=== PATIENT | female | born 1965 | race African-American/Black ===

== ENCOUNTER 2020-01-10 18:33 | Outpatient (REF) | payer MEDICARE, MEDICAID, SELFPAY | END 2020-01-10 18:34 | disposition home or self-care (01) | LOC: HO.LNP 18:33 | PROVIDERS: Visit Provider Hospitalist | DX: Z20.828 Contact with and (suspected) exposure to other viral communicable diseases (principal) | CPT/HCPCS: U0003 ==

== ENCOUNTER 2020-06-23 13:51 | Outpatient (REF) | payer MEDICARE, SELFPAY ==
[2020-06-23 16:26] LABS: MANUAL DIFF FLAG NO
[2020-06-23 16:30] LABS: Basophils Absolute Auto 0.1 X10*3/uL (0.0-0.2); Basophils Percent Auto 1.2 % (0-2); Eosinophils Absolute Auto 0.1 X10*3/uL (0.0-0.4); Eosinophils Percent Auto 1.5 % (0-4); Hematocrit 41.9 % (37-47); Hemoglobin 13.1 g/dl (12.0-16.0); Imm Gran Abs Auto 0.03 X10*3/uL (0.00-0.03); Imm Gran Pct Auto 0.4 % (0.0-0.4); Lymphocytes Absolute Auto 3.8 X10*3/uL (1.2-4.9); Lymphocytes Percent Auto 48.6 % (20-40); Mean Corpuscular HGB Conc 31.3 g/dl (31.0-35.0); Mean Corpuscular Hemoglobin 25.7 pg (27.0-33.0); Mean Corpuscular Volume 82.2 fL (80-98); Mean Platelet Volume 11.3 fL (9.4-12.3); Monocytes Absolute Auto 0.4 X10*3/uL (0.1-1.2); Monocytes Percent Auto 5.5 % (2-11); Neutrophils Absolute Auto 3.4 X10*3/uL (2.0-8.3); Neutrophils Percent Auto 42.8 % (45-73); Platelet Count 275 X10*3/uL (160-400); Red Cell Distribution Width 15.7 % (11.0-16.0); White Blood Count 7.8 X10*3/uL (4.8-10.8)
[2020-06-23 16:55] LABS: Alanine Aminotransferase 19 U/L (0-31); Albumin Level 4.3 g/dL (3.5-5.0); Alkaline Phosphatase 81 U/L (39-117); Anion Gap 11 (12-20); Aspartate Amino Transferase 17 U/L (5-31); Bilirubin Total 0.6 mg/dL (0.0-1.0); Blood Urea Nitrogen 13 mg/dL (9-16); Calcium 9.9 mg/dL (8.4-10.2); Carbon Dioxide 31 mmol/L (22-29); Chloride 105 mmol/L (96-108); Estimated Glomerular Filt Rate > 60; Glucose Random 84 mg/dL (60-115); Potassium 3.8 mmol/L (3.3-5.1); Sodium 143 mmol/L (135-145); Total Protein 7.3 g/dL (6.5-8.0)
[2020-06-23 17:16] LABS: TSH reflex Free T4 0.79 uIU/mL (0.32-4.0)
[2020-06-24 06:01] LABS: LDL Cholesterol Direct 100 mg/dL (<100)
== END 2020-06-23 13:52 | disposition home or self-care (01) ==
LOC: HO.HMGCLDS 13:51
PROVIDERS: PCP Internal Medicine; Visit Provider Internal Medicine
DX: I16.0 Hypertensive urgency (principal); J45.909 Unspecified asthma, uncomplicated
CPT/HCPCS: 36415; 80053; 83721; 84443; 85025

== ENCOUNTER 2021-09-22 10:50 | Outpatient (REF) | payer MEDICARE, MEDICAID, SELFPAY ==
[2021-09-22 13:41] LABS: MANUAL DIFF FLAG NO
[2021-09-22 13:45] LABS: Basophils Absolute Auto 0.1 X10*3/uL (0.0-0.2); Basophils Percent Auto 1.3 % (0-2); Eosinophils Absolute Auto 0.1 X10*3/uL (0.0-0.4); Eosinophils Percent Auto 1.3 % (0-4); Hematocrit 44.1 % (37.0-47.0); Hemoglobin 14.3 g/dl (12.0-16.0); Imm Gran Abs Auto 0.01 X10*3/uL (0.00-0.03); Imm Gran Pct Auto 0.2 % (0.0-0.4); Lymphocytes Absolute Auto 2.6 X10*3/uL (1.2-4.9); Lymphocytes Percent Auto 41.4 % (20-40); Mean Corpuscular HGB Conc 32.4 g/dl (31.0-35.0); Mean Corpuscular Hemoglobin 27.1 pg (27.0-33.0); Mean Corpuscular Volume 83.7 fL (80.0-98.0); Mean Platelet Volume 11.8 fL (9.4-12.3); Monocytes Absolute Auto 0.4 X10*3/uL (0.1-1.2); Monocytes Percent Auto 6.5 % (2-11); Neutrophils Absolute Auto 3.1 x10*3/uL (2.0-8.3); Neutrophils Percent Auto 49.3 % (45-73); Platelet Count 257 X10*3/uL (160-400); Red Blood Count 5.27 X10*6/uL (4.20-5.50); Red Cell Distribution Width 14.1 % (11.0-16.0); White Blood Count 6.3 X10*3/uL (4.8-10.8)
[2021-09-22 14:06] LABS: Alanine Aminotransferase 21 U/L (0-31); Albumin Level 4.4 g/dL (3.5-5.0); Alkaline Phosphatase 97 U/L (39-117); Anion Gap 10 (12-20); Aspartate Amino Transferase 22 U/L (5-31); Bilirubin Total 0.6 mg/dL (0.0-1.0); Blood Urea Nitrogen 17 mg/dL (9-16); Calcium 9.5 mg/dL (8.4-10.2); Carbon Dioxide 27 mmol/L (22-29); Chloride 109 mmol/L (96-108); Cholesterol 204 mg/dL; Estimated Glomerular Filt Rate 51; Glucose Fasting 103 mg/dL (60-99); HDL Cholesterol 39 mg/dL; LDL Cholesterol Calculated 135 mg/dl; Potassium 3.9 mmol/L (3.3-5.1); Sodium 142 mmol/L (135-145); Total Protein 7.2 g/dL (6.5-8.0); Triglycerides 150 mg/dL
[2021-09-22 14:28] LABS: TSH reflex Free T4 0.93 uIU/mL (0.32-4.0)
== END 2021-09-22 10:51 | disposition home or self-care (01) ==
LOC: HO.HMGCLDS 10:50
PROVIDERS: Visit Provider Internal Medicine
DX: Z00.01 Encounter for general adult medical examination with abnormal findings (principal); I10 Essential (primary) hypertension; J43.9 Emphysema, unspecified; J45.40 Moderate persistent asthma, uncomplicated; E66.09 Other obesity due to excess calories; F32.2 Major depressive disorder, single episode, severe without psychotic features; F43.10 Post-traumatic stress disorder, unspecified
CPT/HCPCS: 36415; 80053; 80061; 84443; 85025

== ENCOUNTER 2021-12-02 10:37 | Outpatient (REF) | payer MEDICARE, MEDICAID, SELFPAY ==
[2021-12-02 18:14] LABS: CT PCR NOT DETECTED (Not Detect.); NG PCR NOT DETECTED (Not Detect.)
[2021-12-07 10:52] LABS: HPV 16 RNA NOT DETECTED (NOT DETECTED); HPV mRNA E6/E7 rflx Detected (Not Detected)
== END 2021-12-02 10:38 | disposition home or self-care (01) ==
LOC: HO.LNP 10:37
PROVIDERS: Visit Provider Advanced Practice Midwife
DX: Z01.419 Encounter for gynecological examination (general) (routine) without abnormal findings (principal); Z11.3 Encounter for screening for infections with a predominantly sexual mode of transmission; Z11.8 Encounter for screening for other infectious and parasitic diseases; Z11.51 Encounter for screening for human papillomavirus (HPV)
CPT/HCPCS: 87491; 87591; 87624; 87625; 88142

== ENCOUNTER 2021-12-23 10:50 | Outpatient (REF) | payer MEDICARE, MEDICAID, SELFPAY ==
--- NOTE | ~2021-12-23 | MM_ITS ---
EXAMINATION: MM SCREENING DIGITAL BREAST TOMOSYNTHESIS, BILATERAL CLINICAL INFORMATION: Screening. Asymptomatic. No known family history breast cancer. The lifetime risk of breast cancer based on the Tyrer-Cuzick Model is 7%. COMPARISON: None. TECHNIQUE: Digital breast tomosynthesis is performed in both the craniocaudal and mediolateral oblique views along with computer-aided detection (CAD). Synthesized 2D images are generated from the tomosynthesis. Additional right MLO view is provided. FINDINGS: There are scattered areas of fibroglandular density (ACR BI-RADS breast composition Category b). There are no significant masses, abnormal calcifications, or other abnormalities. No architectural abnormality. The axilla and skin contours are unremarkable. MM/MM tomosynthesis screening BI IMPRESSION: No mammographic evidence of malignancy. ASSESSMENT: BI-RADS 1: Negative RECOMMENDATION: Routine annual mammography screening. This patient's information was entered into a reminder system with a target due date for their next mammogram.
== END 2021-12-23 10:51 | disposition home or self-care (01) ==
LOC: HO.MAMMO 10:50
PROVIDERS: PCP Internal Medicine; Visit Provider Advanced Practice Midwife
DX: Z12.31 Encounter for screening mammogram for malignant neoplasm of breast (principal)
CPT/HCPCS: 77063; 77067

== ENCOUNTER 2022-04-05 09:48 | Outpatient (REF) | payer MEDICARE, MEDICAID, SELFPAY ==
[2022-04-05 11:46] LABS: MANUAL DIFF FLAG NO
[2022-04-05 12:00] LABS: Basophils Absolute Auto 0.1 X10*3/uL (0.0-0.2); Basophils Percent Auto 1.2 % (0-2); Eosinophils Absolute Auto 0.1 X10*3/uL (0.0-0.4); Eosinophils Percent Auto 1.8 % (0-4); Hematocrit 44.1 % (37.0-47.0); Hemoglobin 14.7 g/dl (12.0-16.0); Imm Gran Abs Auto 0.02 X10*3/uL (0.00-0.03); Imm Gran Pct Auto 0.3 % (0.0-0.4); Lymphocytes Absolute Auto 3.5 X10*3/uL (1.2-4.9); Lymphocytes Percent Auto 52.2 % (20-40); Mean Corpuscular HGB Conc 33.3 g/dl (31.0-35.0); Mean Corpuscular Hemoglobin 28.2 pg (27.0-33.0); Mean Corpuscular Volume 84.6 fL (80.0-98.0); Mean Platelet Volume 12.2 fL (9.4-12.3); Monocytes Absolute Auto 0.5 X10*3/uL (0.1-1.2); Monocytes Percent Auto 7.2 % (2-11); Neutrophils Absolute Auto 2.5 x10*3/uL (2.0-8.3); Neutrophils Percent Auto 37.3 % (45-73); Platelet Count 218 X10*3/uL (160-400); Red Blood Count 5.21 X10*6/uL (4.20-5.50); Red Cell Distribution Width 13.3 % (11.0-16.0); White Blood Count 6.7 X10*3/uL (4.8-10.8)
[2022-04-05 12:29] LABS: Alanine Aminotransferase 19 U/L (0-31); Alkaline Phosphatase 70 U/L (39-117); Anion Gap 14 (12-20); Aspartate Amino Transferase 19 U/L (5-31); Bilirubin Total 0.8 mg/dL (0.0-1.0); Blood Urea Nitrogen 16 mg/dL (9-16); Calcium 10.2 mg/dL (8.4-10.2); Carbon Dioxide 29 mmol/L (22-29); Chloride 106 mmol/L (96-108); Estimated Glomerular Filt Rate 52; Glucose Random 99 mg/dL (60-115); Potassium 3.5 mmol/L (3.3-5.1); Sodium 145 mmol/L (135-145); Total Protein 6.6 g/dL (6.5-8.0)
[2022-04-05 12:34] LABS: Estimated Average Glucose 103 mg/dL; Hemoglobin A1c % 5.2 %
== END 2022-04-05 09:49 | disposition home or self-care (01) ==
LOC: HO.HMGCLDS 09:48
PROVIDERS: PCP Internal Medicine; Visit Provider Internal Medicine
DX: I10 Essential (primary) hypertension (principal); E66.09 Other obesity due to excess calories; F32.2 Major depressive disorder, single episode, severe without psychotic features; F43.10 Post-traumatic stress disorder, unspecified; J43.9 Emphysema, unspecified; J45.40 Moderate persistent asthma, uncomplicated
CPT/HCPCS: 36415; 80053; 83036; 84443; 85025

== ENCOUNTER 2022-09-28 10:17 | Outpatient (AMB) | payer MEDICARE, MEDICAID, SELFPAY ==
[2022-09-28 10:19] VITALS: BP 136/90; PULSE 95; O2SAT 98; BMI 40.2
--- NOTE | 2022-09-28 10:19 | MHC.PC.OV ---
Vital Signs 09/28/22 10:19 Height 5 ft 4 in Weight 234 lb 6 oz BMI 40.2 BP 136/90 H Blood Pressure Location Rt brachial Position Sitting Pulse 95 Pulse Source Pulse Oximeter Pulse Oximetry (%) 98 Oxygen Delivery Method Room Air Intake Visit Reasons: 3m follow up Allergies No Known Allergies Allergy (Verified 09/28/22 10:19) Medication List - Last Reconciled 09/28/22 by Gilmar Yeager MD Anoro Ellipta 62.5-25 mcg/actuation (umeclidinium-vilanterol) 1 inh inhalation DAILY 60 days NS buspirone 10 mg PO .q am 90 days hydrochlorothiazide 25 mg PO ONCE 90 days lisinopril 40 mg PO DAILY 90 days quetiapine 100 mg (2 x 50 mg) PO BEDTIME 90 days Tobacco use date assessed: 09/28/22 Dental Screening Dental Screen Date: 09/28/22 Did you have a dental visit in the last 12 months?: No Did you have a dental problem in the last 6 months where you did not have access to dental care?: No Was dental information given to patient?: No HPI 3m follow up HPI Details Patient is a 57-year-old female came in today for follow-up appointment. She forgot to do the labs she will have them done today Hypertension: She is on hydrochlorothiazide 25 mg and lisinopril 40 mg. Blood pressure is stable Depression major/PTSD: Patient is on Seroquel 100 at night which is helping with the sleep however continued to feel depressed Patient says that she has walking as in her mind and sometimes cannot concentrate. I am adding Wellbutrin 150 mg that she is to start in the morning Buspirone did not help her with anxiety I have stopped that Continue to smoke once again instructed patient to stop smoking as soon as possible. Asthma: She is using maintenance inhaler now and is doing well. BMI is 40 having difficulty losing weight Follow-up 3 months [facility] Medical History BMI 38.0-38.9,adult Family History Mother Ovarian cancer Social History Housing: Other Alcohol intake: never Patient Tobacco Use Status: Current everyday Tobacco user Cigarettes Per Day: 5 e-Cigarette/Vaping Use: Never Used service: No Current occupational status: unemployed Sexual orientation: Straight/Heterosexual Gender identity: Female Cognitive needs: No Hearing needs: No Vision needs: No Questionnaire PHQ-9 Over the last 2 weeks, how often have you been bothered by any of the following problems? 1. Little interest or pleasure in doing things: several days 2. Feeling down, depressed, or hopeless: nearly every day 3. Trouble falling or staying asleep, or sleeping too much: more than half the days 4. Feeling tired or having little energy: several days 5. Poor appetite or overeating: several days 6. Feeling bad about yourself - or that you are a failure or have let yourself or your family down: more than half the days 7. Trouble concentrating on things, such as reading the newspaper or watching television: nearly every day 8. Moving or speaking so slowly that other people could have noticed. Or the opposite - being so fidgety or restless that you have been moving around a lot more than usual: several days 9. Thoughts that you would be better off or of hurting yourself in some way: more than half the days Total score: 16 Depression Screening Interpretation: Positive 89784 - PHQ-9 Billing: Yes Source: Developed by Drs. Joe Fernandes, Malathi Lindsey, [employer] and colleagues, with an educational edmundo from [employer]. Thrive Questionnaire Date Thrive assessed: 09/28/22 I am a: Patient What is your living situation today?: I have a steady place to live Within the past 12 months, did the food you bought not last and you didn't have the money to get more?: Never true Within the past 12 months, did you worry whether your food would run out before you got money to buy more?: Never true Do you have trouble paying for medicines?: No Do you have trouble getting transportation to medical appointments?: No Do you have trouble paying your heating and electricity bill?: No Do you have trouble taking care of your child, family member or friend?: No Do you have trouble with day-to-day activities such as bathing, preparing meals, shopping, managing finances, etc.?: Yes Are you currently unemployed and looking for a job?: No Are you interested in more education?: No AUDIT C Alcohol Use Questionnaire (AUDIT-C) 1. How often do you have a drink containing alcohol?: Never 3. How often do you have six or more drinks on one occasion?: Never Total Score: 0 Score Reviewed/Action Taken: Yes PREET-7 AMB Questionnaire PREET-7 Date PREET - 7 assessed: 09/28/22 Feeling nervous, anxious, or on edge: 1 = Several days Not being able to stop or control worryin = More than half the days Worrying too much about different things: 2 = More than half the days Trouble relaxin = More than half the days Being so restless that it is hard to sit still: 1 = Several days Becoming easily annoyed or irritable: 2 = More than half the days Feeling afraid as if something awful might happen: 2 = More than half the days Total PREET-7 score (0-4 normal; 5-9 mild; 10-14 moderate; 15-21 severe): 12 Source: Developed by Drs. Joe Fernandes, Malathi Lindsey, [employer] and colleagues, with an educational edmundo from [employer]. PREET-7 Assessment Billing PREET-7 Assessment Tool: PREET-7 Assessment 93864 Review of Systems Const Denies chills and Denies fever(s) ENT Denies epistaxis and Denies nasal discharge Card Denies chest pain Resp Denies chest congestion, Denies cough and Denies hemoptysis GI Denies diarrhea and Denies nausea Skin/Breast Denies rash Neuro Reports no additional complaints Psych Reports no additional complaints Endo Reports no additional complaints Physical exam (Primary Care) Vital Signs: Last Vital Signs Pulse 95 09/28/22 10:19 BP 136/90 H 09/28/22 10:19 Pulse Ox 98 09/28/22 10:19 Oxygen Delivery Method Room Air 09/28/22 10:19 BMI result Body Mass Index 40.2 Tobacco/Smoking Status: Tobacco use Status Tobacco use date assessed 09/28/22 09/28/22 10:21 Patient Tobacco Use Status Current everyday Tobacco 09/28/22 10:21 e-Cigarette/Vaping Use Never Used 09/28/22 10:21 PHQ-9: PHQ-9 Score PHQ-9: Total score 16 09/28/22 10:46 Depression Screening Interpretation: Positive Thrive Assessment: Date of Thrive Assessment Date Thrive assessed 09/28/22 09/28/22 10:46 Const General: cooperative, comfortable and no acute distress Orientation/consciousness: patient oriented x3 HENMT Head: Yes normocephalic Eyes General: appearance normal, both eyes and all related structures Neck Neck: Yes supple Resp Effort & Inspection: normal respiratory effort, no cough and no stridor Cardio Rhythm: regular rhythm Heart sounds: S1 normal heart sound present and S2 normal heart sound present Skin General skin exam: turgor normal Neuro General: patient oriented x3, tone normal and moves all extremities Extrem Right lower extremity: no edema Left lower extremity: no edema Assessment and Plan Assessment & Plan (1) Asthma, moderate: Code(s): J45.909 - Unspecified asthma, uncomplicated Qualifiers: Asthma complication type: uncomplicated Asthma persistence: persistent Qualified Code(s): J45.40 - Moderate persistent asthma, uncomplicated (2) PTSD (post-traumatic stress disorder): Code(s): F43.10 - Post-traumatic stress disorder, unspecified (3) Major depress dis, severe: Code(s): F32.2 - Major depressive disorder, single episode, severe without psychotic features (4) Obesity due to excess calories: Code(s): E66.09 - Other obesity due to excess calories (5) Hypertension, essential: Code(s): I10 - Essential (primary) hypertension (6) Impaired fasting blood sugar: Code(s): R73.01 - Impaired fasting glucose Plan Patient is a 57-year-old female came in today for follow-up appointment. She forgot to do the labs she will have them done today Hypertension: She is on hydrochlorothiazide 25 mg and lisinopril 40 mg. Blood pressure is stable Depression major/PTSD: Patient is on Seroquel 100 at night which is helping with the sleep however continued to feel depressed Patient says that she has walking as in her mind and sometimes cannot concentrate. I am adding Wellbutrin 150 mg that she is to start in the morning Buspirone did not help her with anxiety I have stopped that Continue to smoke once again instructed patient to stop smoking as soon as possible. Asthma: She is using maintenance inhaler now and is doing well. BMI is 40 having difficulty losing weight Follow-up 3 months Medications: New bupropion HCl (Wellbutrin XL) 150 mg PO QAM 90 tabs 0RF Refilled lisinopril 40 mg PO DAILY 90 tabs 0RF Blood pressure 90 days hydrochlorothiazide 25 mg PO ONCE 90 tabs 0RF Blood pressure 90 days Anoro Ellipta 62.5-25 mcg/actuation (umeclidinium-vilanterol) 1 inh inhalation DAILY 60 ea 1RF 60 days NS Discontinued buspirone Discontinued Reason: Doctor's Order 10 mg PO .q am 90 days 90 tabs 0RF Anxiety Coding Level of Care Code Est Pt Level 4 (22951) Diagnoses Asthma, moderate J45.40 Asthma complication type: uncomplicated Asthma persistence: persistent PTSD (post-traumatic stress disorder) F43.10 Major depress dis, severe F32.2 Obesity due to excess calories E66.09 Hypertension, essential I10 Impaired fasting blood sugar R73.01 Additional Codes PREET-7 Assessment Billing - PREET-7 Assessment Tool: PREET-7 Assessment [id number] ([id number])
== END 2022-09-28 10:44 | disposition home or self-care (01) ==
PROVIDERS: Visit Provider Internal Medicine
DX: J45.40 Moderate persistent asthma, uncomplicated (principal); F43.10 Post-traumatic stress disorder, unspecified; Z68.41 Body mass index [BMI] 40.0-44.9, adult; E66.09 Other obesity due to excess calories; I10 Essential (primary) hypertension; F32.2 Major depressive disorder, single episode, severe without psychotic features; R73.01 Impaired fasting glucose
CPT/HCPCS: 96127; 99214

== ENCOUNTER 2022-09-28 11:01 | Outpatient (REF) | payer MEDICARE, MEDICAID, SELFPAY ==
[2022-09-28 13:26] LABS: MANUAL DIFF FLAG NO
[2022-09-28 13:33] LABS: Basophils Absolute Auto 0.1 X10*3/uL (0.0-0.2); Basophils Percent Auto 0.9 % (0-2); Eosinophils Absolute Auto 0.1 X10*3/uL (0.0-0.4); Eosinophils Percent Auto 0.9 % (0-4); Hematocrit 45.1 % (37.0-47.0); Hemoglobin 14.8 g/dl (12.0-16.0); Imm Gran Abs Auto 0.02 X10*3/uL (0.00-0.03); Imm Gran Pct Auto 0.3 % (0.0-0.4); Lymphocytes Absolute Auto 2.3 X10*3/uL (1.2-4.9); Lymphocytes Percent Auto 36.6 % (20-40); Mean Corpuscular HGB Conc 32.8 g/dl (31.0-35.0); Mean Corpuscular Hemoglobin 28.2 pg (27.0-33.0); Mean Corpuscular Volume 85.9 fL (80.0-98.0); Mean Platelet Volume 11.9 fL (9.4-12.3); Monocytes Absolute Auto 0.3 X10*3/uL (0.1-1.2); Monocytes Percent Auto 5.2 % (2-11); Neutrophils Absolute Auto 3.6 x10*3/uL (2.0-8.3); Neutrophils Percent Auto 56.1 % (45-73); Platelet Count 232 X10*3/uL (160-400); Red Blood Count 5.25 X10*6/uL (4.20-5.50); Red Cell Distribution Width 13.6 % (11.0-16.0); White Blood Count 6.3 X10*3/uL (4.8-10.8)
[2022-09-28 13:50] LABS: Estimated Average Glucose 94 mg/dL; Hemoglobin A1c % 4.9 %
[2022-09-28 13:52] LABS: Alanine Aminotransferase 20 U/L (0-31); Albumin Level 4.1 g/dL (3.5-5.0); Alkaline Phosphatase 65 U/L (39-117); Anion Gap 10 (12-20); Aspartate Amino Transferase 21 U/L (5-31); Bilirubin Total 0.5 mg/dL (0.0-1.0); Blood Urea Nitrogen 18 mg/dL (9-16); Calcium 10.2 mg/dL (8.4-10.2); Carbon Dioxide 29 mmol/L (22-29); Chloride 106 mmol/L (96-108); Estimated Glomerular Filt Rate 50; Glucose Random 96 mg/dL (60-115); Potassium 3.1 mmol/L (3.3-5.1); Sodium 142 mmol/L (135-145); Total Protein 7.1 g/dL (6.5-8.0)
== END 2022-09-28 11:02 | disposition home or self-care (01) ==
LOC: HO.HMGCLDS 11:01
PROVIDERS: PCP Internal Medicine; Visit Provider Internal Medicine
DX: E66.09 Other obesity due to excess calories (principal); F32.2 Major depressive disorder, single episode, severe without psychotic features; F43.10 Post-traumatic stress disorder, unspecified; I10 Essential (primary) hypertension; J45.909 Unspecified asthma, uncomplicated; R73.01 Impaired fasting glucose
CPT/HCPCS: 36415; 80053; 83036; 85025

== ENCOUNTER 2022-12-27 10:18 | Outpatient (AMB) | payer MEDICARE, MEDICAID, SELFPAY ==
[2022-12-27 10:29] VITALS: BP 132/80; PULSE 65; O2SAT 96; BMI 39.9
--- NOTE | 2022-12-27 10:29 | A.OFFPC_ITS ---
Vital Signs 12/27/22 10:29 Height 5 ft 4 in Weight 232 lb 4 oz BMI 39.9 BP 132/80 Blood Pressure Location Lt brachial Position Sitting Pulse 65 Pulse Source Pulse Oximeter Pulse Oximetry (%) 96 Oxygen Delivery Method Room Air Intake Visit Reasons: 3m Allergies No Known Allergies Allergy (Verified 12/27/22 10:30) Medication List - Last Reconciled 12/27/22 by Gilmar Yeager MD Anoro Ellipta 62.5-25 mcg/actuation (umeclidinium-vilanterol) 1 inh inhalation DAILY 60 days NS bupropion HCl (Wellbutrin XL) 150 mg PO QAM hydrochlorothiazide 25 mg PO ONCE 90 days lisinopril 40 mg PO DAILY 90 days quetiapine 100 mg (2 x 50 mg) PO BEDTIME 90 days Tobacco use date assessed: 12/27/22 Dental Screening Dental Screen Date: 12/27/22 Did you have a dental visit in the last 12 months?: No Did you have a dental problem in the last 6 months where you did not have access to dental care?: No Was dental information given to patient?: Patient declined HPI 3m HPI Details Patient is a 57-year-old female came in today for follow-up appointment. She was in [facility] emergency room recently because of back pain She was found to have a renal calculi left side of kidney on ultrasound, she was also having gross hematuria Patient was treated with antibiotic she is feeling better But still have slight discomfort on left side kidney area. I am ordering repeat ultrasound there is a possibility that patient might have passed the renal calculi. She said that she was booked appointment with urology through [facility] but she missed the appointment and now she over them 50 dollars. Hypertension: She is on hydrochlorothiazide 25 mg and lisinopril 40 mg. Blood pressure is stable Depression major/PTSD: Patient is on Seroquel 100 at night which is helping with the sleep patient says that she still wake up 3 or 4 times at night I am increasing the dose to 150 mg, Continue Wellbutrin as well And buspirone for anxiety controlled Continue to smoke once again instructed patient to stop smoking as soon as possible. Asthma: She is using maintenance inhaler now and is doing well. BMI is elevated need to lose weight Follow-up 3 months [facility] Medical History BMI 38.0-38.9,adult Family History Mother Ovarian cancer Social History Housing: Other Alcohol intake: never Patient Tobacco Use Status: Current everyday Tobacco user Cigarettes Per Day: 5 e-Cigarette/Vaping Use: Never Used service: No Current occupational status: unemployed Sexual orientation: Straight/Heterosexual Gender identity: Female Cognitive needs: No Hearing needs: No Vision needs: No Questionnaire PHQ-9 Over the last 2 weeks, how often have you been bothered by any of the following problems? 1. Little interest or pleasure in doing things: several days 2. Feeling down, depressed, or hopeless: more than half the days 3. Trouble falling or staying asleep, or sleeping too much: more than half the days 4. Feeling tired or having little energy: several days 5. Poor appetite or overeating: several days 6. Feeling bad about yourself - or that you are a failure or have let yourself or your family down: more than half the days 7. Trouble concentrating on things, such as reading the newspaper or watching television: more than half the days 8. Moving or speaking so slowly that other people could have noticed. Or the opposite - being so fidgety or restless that you have been moving around a lot more than usual: several days 9. Thoughts that you would be better off or of hurting yourself in some way: not at all Total score: 12 Depression Screening Interpretation: Positive Depression Screening Follow-up: Existing condition and In treatment Depression Screening Done: Yes 13378 - PHQ-9 Billing: Yes Source: Developed by Drs. Joe Fernandes, Malathi Lindsey, [employer] and colleagues, with an educational edmundo from [employer]. Thrive Questionnaire Date Thrive assessed: 09/28/22 AUDIT C Alcohol Use Questionnaire (AUDIT-C) 1. How often do you have a drink containing alcohol?: Never 3. How often do you have six or more drinks on one occasion?: Never Total Score: 0 Score Reviewed/Action Taken: Yes PREET-7 AMB Questionnaire PREET-7 Date PREET - 7 assessed: 09/28/22 Source: Developed by Drs. Joe Fernandes, Malathi Lindsey, [employer] and colleagues, with an educational edmundo from [employer]. Review of Systems Const Denies chills and Denies fever(s) ENT Denies epistaxis and Denies nasal discharge Card Denies chest pain Resp Denies chest congestion, Denies cough and Denies hemoptysis GI Denies diarrhea and Denies nausea Skin/Breast Denies rash Neuro Reports no additional complaints Psych Reports no additional complaints Endo Reports no additional complaints Physical exam (Primary Care) Vital Signs: Last Vital Signs Pulse 65 12/27/22 10:29 BP 132/80 12/27/22 10:29 Pulse Ox 96 12/27/22 10:29 Oxygen Delivery Method Room Air 12/27/22 10:29 BMI result Body Mass Index 39.9 Tobacco/Smoking Status: Tobacco use Status Tobacco use date assessed 12/27/22 12/27/22 10:30 Patient Tobacco Use Status Current everyday Tobacco 12/27/22 10:30 e-Cigarette/Vaping Use Never Used 12/27/22 10:30 PHQ-9: PHQ-9 Score PHQ-9: Total score 12 12/27/22 11:54 Depression Screening Interpretation: Positive Depression Screening Follow-up: Existing condition and In treatment Thrive Assessment: Date of Thrive Assessment Date Thrive assessed 09/28/22 12/27/22 10:30 Const General: cooperative, comfortable and no acute distress Orientation/consciousness: patient oriented x3 HENMT Head: Yes normocephalic Eyes General: appearance normal, both eyes and all related structures Neck Neck: Yes supple Resp Effort & Inspection: normal respiratory effort, no cough and no stridor Cardio Rhythm: regular rhythm Heart sounds: S1 normal heart sound present and S2 normal heart sound present Skin General skin exam: turgor normal Neuro General: patient oriented x3, tone normal and moves all extremities Extrem Right lower extremity: no edema Left lower extremity: no edema Assessment and Plan Assessment & Plan (1) Renal calculus, left: Code(s): N20.0 - Calculus of kidney (2) Asthma, moderate: Code(s): J45.909 - Unspecified asthma, uncomplicated Qualifiers: Asthma complication type: uncomplicated Asthma persistence: persistent Qualified Code(s): J45.40 - Moderate persistent asthma, uncomplicated (3) Hypertension, essential: Code(s): I10 - Essential (primary) hypertension (4) Morbid obesity due to excess calories: Code(s): E66.01 - Morbid (severe) obesity due to excess calories (5) PTSD (post-traumatic stress disorder): Code(s): F43.10 - Post-traumatic stress disorder, unspecified (6) Major depress dis, severe: Code(s): F32.2 - Major depressive disorder, single episode, severe without psychotic feat ures (7) Impaired fasting blood sugar: Code(s): R73.01 - Impaired fasting glucose Plan Patient is a 57-year-old female came in today for follow-up appointment. She was in [facility] emergency room recently because of back pain She was found to have a renal calculi left side of kidney on ultrasound, she was also having gross hematuria Patient was treated with antibiotic she is feeling better But still have slight discomfort on left side kidney area. I am ordering repeat ultrasound there is a possibility that patient might have passed the renal calculi. She said that she was booked appointment with urology through [facility] but she missed the appointment and now she over them 50 dollars. Hypertension: She is on hydrochlorothiazide 25 mg and lisinopril 40 mg. Blood pressure is stable Depression major/PTSD: Patient is on Seroquel 100 at night which is helping with the sleep patient says that she still wake up 3 or 4 times at night I am increasing the dose to 150 mg, Continue Wellbutrin as well And buspirone for anxiety controlled Continue to smoke once again instructed patient to stop smoking as soon as possible. Asthma: She is using maintenance inhaler now and is doing well. BMI is elevated need to lose weight Follow-up 3 months Orders: Orders US biopsy renal Today N20.0 - Calculus of kidney Medications: Changed From quetiapine 100 mg (2 x 50 mg) PO BEDTIME 90 days 180 tabs 0RF To quetiapine 150 mg (3 x 50 mg) PO BEDTIME 270 tabs 0RF 90 days Refilled Anoro Ellipta 62.5-25 mcg/actuation (umeclidinium-vilanterol) 1 inh inhalation DAILY 60 ea 1RF 60 days NS bupropion HCl (Wellbutrin XL) 150 mg PO QAM 90 tabs 0RF hydrochlorothiazide 25 mg PO ONCE 90 tabs 0RF Blood pressure 90 days lisinopril 40 mg PO DAILY 90 tabs 0RF Blood pressure 90 days quetiapine 100 mg (2 x 50 mg) PO BEDTIME 90 days 180 tabs 0RF Coding Level of Care Code Est Pt Level 4 (01807) Diagnoses Renal calculus, left N20.0 Moderate persistent asthma without complication J45.40 Asthma complication type: uncomplicated Asthma persistence: persistent Hypertension, essential I10 Morbid obesity due to excess calories E66.01 PTSD (post-traumatic stress disorder) F43.10 Major depress dis, severe F32.2 Impaired fasting blood sugar R73.01
== END 2022-12-27 12:14 | disposition home or self-care (01) ==
PROVIDERS: PCP Internal Medicine; Visit Provider Internal Medicine
DX: J45.40 Moderate persistent asthma, uncomplicated (principal); E66.01 Morbid (severe) obesity due to excess calories; F32.2 Major depressive disorder, single episode, severe without psychotic features; Z68.39 Body mass index [BMI] 39.0-39.9, adult; F43.10 Post-traumatic stress disorder, unspecified; N20.0 Calculus of kidney; I10 Essential (primary) hypertension; R73.01 Impaired fasting glucose
CPT/HCPCS: 99214

== ENCOUNTER 2023-01-19 08:49 | Outpatient (REF) | payer MEDICARE, MEDICAID, SELFPAY ==
--- NOTE | ~2023-01-19 | US_ITS ---
EXAMINATION: US RETROPERITONEAL LIMITED (RENAL ONLY) CLINICAL INFORMATION: Calculus of kidney. COMPARISON: None available. TECHNIQUE: Real-time imaging of the kidneys. FINDINGS: RIGHT KIDNEY: 11.2 x 4.3 x 5.6 cm (SAG x AP x TRV). The kidney is normal in size, contour, and echogenicity. Renal cortical thickness is normal. No calculi or focal parenchymal lesions. No hydronephrosis. LEFT KIDNEY: 11.8 x 4.1 x 5.1 cm (SAG x AP x TRV). The kidney is normal in size and echogenicity. Renal cortical thickness is normal. There is a 6.6 x 8 mm cyst in the lower pole. No imaging follow-up recommended. No renal calculi or hydronephrosis. US/US renal BI IMPRESSION: No stone seen.
== END 2023-01-19 08:50 | disposition home or self-care (01) ==
LOC: HO.HMGCX 08:49
PROVIDERS: PCP Internal Medicine; Visit Provider Internal Medicine
DX: N20.0 Calculus of kidney (principal)
CPT/HCPCS: 76775

== ENCOUNTER 2023-06-30 10:55 | Outpatient (AMB) | payer MEDICARE, MEDICAID, SELFPAY ==
--- NOTE | 2023-06-30 10:56 | A.OFFPC_ITS ---
Vital Signs 06/30/23 10:57 Height 5 ft 4 in Weight 230 lb BMI 39.5 BP 138/82 Blood Pressure Location Lt brachial Position Sitting Pulse 99 Pulse Source Pulse Oximeter Pulse Oximetry (%) 96 Oxygen Delivery Method Room Air Intake Visit Reasons: F/U meds Per Allergies No Known Allergies Allergy (Verified 12/27/22 10:30) Medication List - Last Reconciled 06/30/23 by Gilmar Yeager MD Anoro Ellipta 62.5-25 mcg/actuation (umeclidinium-vilanterol) 1 inh inhalation DAILY 60 days NS bupropion HCl XL (Wellbutrin XL) 150 mg PO QAM buspirone 10 mg PO .q am 90 days hydrochlorothiazide 25 mg PO DAILY 90 days lisinopril 40 mg PO DAILY 90 days quetiapine 150 mg (3 x 50 mg) PO BEDTIME 34 days Tobacco use date assessed: 06/30/23 Dental Screening Dental Screen Date: 06/30/23 Did you have a dental visit in the last 12 months?: Yes Did you have a dental problem in the last 6 months where you did not have access to dental care?: No Was dental information given to patient?: Patient has dentist HPI F/U meds Per HPI Details Patient is a 58-year-old female came in today for follow-up appointment. Due for labs Patient have a history of impaired fasting sugar, I would recommend strict diet- controlled Hypertension: She is on hydrochlorothiazide 25 mg and lisinopril 40 mg. Blood pressure is stable Depression major/PTSD: Patient is on Seroquel 150 mg at night she is doing well along with Wellbutrin 150 mg And buspirone for anxiety controlled Continue to smoke once again instructed patient to stop smoking as soon as possible. Asthma/COPD: She is using maintenance inhaler now and is doing well. BMI is elevated need to lose weight Follow-up 3 months [facility] Medical History BMI 38.0-38.9,adult Family History Mother Ovarian cancer Social History Housing: Other Alcohol intake: never Patient Tobacco Use Status: Current everyday Tobacco user Cigarettes Per Day: 5 e-Cigarette/Vaping Use: Never Used service: No Current occupational status: unemployed Sexual orientation: Straight/Heterosexual Gender identity: Female Cognitive needs: No Hearing needs: No Vision needs: No Questionnaire PHQ-9 Over the last 2 weeks, how often have you been bothered by any of the following problems? 1. Little interest or pleasure in doing things: not at all 2. Feeling down, depressed, or hopeless: several days 3. Trouble falling or staying asleep, or sleeping too much: more than half the days 4. Feeling tired or having little energy: more than half the days 5. Poor appetite or overeating: more than half the days 6. Feeling bad about yourself - or that you are a failure or have let yourself or your family down: several days 7. Trouble concentrating on things, such as reading the newspaper or watching television: several days 8. Moving or speaking so slowly that other people could have noticed. Or the opposite - being so fidgety or restless that you have been moving around a lot more than usual: not at all 9. Thoughts that you would be better off or of hurting yourself in some way: several days Total score: 10 Depression Screening Interpretation: Positive Depression Screening Follow-up: Existing condition and In treatment Depression Screening Done: Yes 36562 - PHQ-9 Billing: Yes Source: Developed by Drs. Joe Fernandes, Malathi Lindsey, [employer] and colleagues, with an educational edmundo from [employer]. Thrive Questionnaire Date Thrive assessed: 06/30/23 What is your living situation today?: I have a place to live, but I am worried about losing it in the future Within the past 12 months, did the food you bought not last and you didn't have the money to get more?: Never true Within the past 12 months, did you worry whether your food would run out before you got money to buy more?: Never true Do you have trouble paying for medicines?: No Do you have trouble getting transportation to medical appointments?: Yes Do you have trouble paying your heating and electricity bill?: No Do you have trouble taking care of your child, family member or friend?: No Do you have trouble with day-to-day activities such as bathing, preparing meals, shopping, managing finances, etc.?: No Are you currently unemployed and looking for a job?: Yes Are you interested in more education?: No Please select the resources that you would like help with: None Currently or been in a relationship where the following occur: no concerns reported THRIVE Score: 2 AUDIT C Alcohol Use Questionnaire (AUDIT-C) 1. How often do you have a drink containing alcohol?: Never 3. How often do you have six or more drinks on one occasion?: Never Total Score: 0 Score Reviewed/Action Taken: Yes PREET-7 AMB Questionnaire PREET-7 Date PREET - 7 assessed: 06/30/23 Feeling nervous, anxious, or on edge: 1 = Several days Not being able to stop or control worryin = Several days Worrying too much about different things: 1 = Several days Trouble relaxin = Several days Being so restless that it is hard to sit still: 1 = Several days Becoming easily annoyed or irritable: 1 = Several days Feeling afraid as if something awful might happen: 1 = Several days Total PREET-7 score (0-4 normal; 5-9 mild; 10-14 moderate; 15-21 severe): 7 Source: Developed by Drs. Joe Fernandes, Malathi Lindsey, [employer] and colleagues, with an educational edmundo from [employer]. PREET-7 Assessment Billing PREET-7 Assessment Tool: PREET-7 Assessment 68086 Review of Systems Const Denies chills and Denies fever(s) ENT Denies epistaxis and Denies nasal discharge Card Denies chest pain Resp Denies chest congestion, Denies cough and Denies hemoptysis GI Denies diarrhea and Denies nausea Skin/Breast Denies rash Neuro Reports no additional complaints Psych Reports no additional complaints Endo Reports no additional complaints Physical exam (Primary Care) Vital Signs: Last Vital Signs Pulse 99 06/30/23 10:57 BP 138/82 06/30/23 10:57 Pulse Ox 96 06/30/23 10:57 Oxygen Delivery Method Room Air 06/30/23 10:57 BMI result Body Mass Index 39.5 Tobacco/Smoking Status: Tobacco use Status Tobacco use date assessed 06/30/23 06/30/23 11:01 Patient Tobacco Use Status Current everyday Tobacco 06/30/23 11:01 e-Cigarette/Vaping Use Never Used 06/30/23 11:01 PHQ-9: PHQ-9 Score PHQ-9: Total score 10 06/30/23 11:22 Depression Screening Interpretation: Positive Depression Screening Follow-up: Existing condition and In treatment Thrive Assessment: Date of Thrive Assessment Date Thrive assessed 06/30/23 06/30/23 11:22 Currently or been in a relationship where the following occur: no concerns reported Const General: cooperative, comfortable and no acute distress Orientation/consciousness: patient oriented x3 HENMT Head: Yes normocephalic Eyes General: appearance normal, both eyes and all related structures Neck Neck: Yes supple Resp Effort & Inspection: normal respiratory effort, no cough and no stridor Cardio Rhythm: regular rhythm Heart sounds: S1 normal heart sound present and S2 normal heart sound present Skin General skin exam: turgor normal Neuro General: patient oriented x3, tone normal and moves all extremities Extrem Right lower extremity: no edema Left lower extremity: no edema Assessment and Plan Assessment & Plan (1) Hypertension, essential: Code(s): I10 - Essential (primary) hypertension (2) COPD (chronic obstructive pulmonary disease): Code(s): J44.9 - Chronic obstructive pulmonary disease, unspecified Qualifiers: COPD type: emphysema Emphysema type: unspecified Qualified Code(s): J43.9 - Emphysema, unspecified (3) Asthma, moderate: Code(s): J45.909 - Unspecified asthma, uncomplicated Qualifiers: Asthma complication type: uncomplicated Asthma persistence: persistent Qualified Code(s): J45.40 - Moderate persistent asthma, uncomplicated (4) PTSD (post-traumatic stress disorder): Code(s): F43.10 - Post-traumatic stress disorder, unspecified (5) Major depress dis, severe: Code(s): F32.2 - Major depressive disorder, single episode, severe without psychotic features (6) Impaired fasting blood sugar: Code(s): R73.01 - Impaired fasting glucose Plan Patient is a 58-year-old female came in today for follow-up appointment. Due for labs Patient have a history of impaired fasting sugar, I would recommend strict diet- controlled Hypertension: She is on hydrochlorothiazide 25 mg and lisinopril 40 mg. Blood pressure is stable Depression major/PTSD: Patient is on Seroquel 150 mg at night she is doing well along with Wellbutrin 150 mg And buspirone for anxiety controlled Continue to smoke once again instructed patient to stop smoking as soon as possible. Asthma/COPD: She is using maintenance inhaler now and is doing well. BMI is elevated need to lose weight Follow-up 3 months Orders: Orders Complete Blood Count Auto Diff Today F32.2 - Major depressive disorder, single episode, severe without psychotic features, F43.10 - Post-traumatic stress disorder, unspecified, I10 - Essential (primary) hypertension, J43.9 - Emphysema, unspecified, J45.40 - Moderate persistent asthma, uncomplicated, R73.01 - Impaired fasting glucose Comprehensive Met. Panel Today F32.2 - Major depressive disorder, single episode, severe without psychotic features, F43.10 - Post-traumatic stress disorder, unspecified, I10 - Essential (primary) hypertension, J43.9 - Emphysema, unspecified, J45.40 - Moderate persistent asthma, uncomplicated, R73.01 - Impaired fasting glucose TSH reflex Free T4 Today F32.2 - Major depressive disorder, single episode, severe without psychotic features, F43.10 - Post-traumatic stress disorder, unspecified, I10 - Essential (primary) hypertension, J43.9 - Emphysema, unspecified, J45.40 - Moderate persistent asthma, uncomplicated, R73.01 - Impaired fasting glucose LDL Cholesterol Direct Today F32.2 - Major depressive disorder, single episode, severe without psychotic features, F43.10 - Post-traumatic stress disorder, unspecified, I10 - Essential (primary) hypertension, J43.9 - Emphysema, unspecified, J45.40 - Moderate persistent asthma, uncomplicated, R73.01 - Impaired fasting glucose Hemoglobin A1c Today R73.01 - Impaired fasting glucose Medications: Changed From quetiapine Future refills pending next appt 150 mg (3 x 50 mg) PO BEDTIME 34 days 102 tabs 0RF To quetiapine Future refills pending next appt 150 mg (3 x 50 mg) PO BEDTIME 270 tabs 0RF 90 days Refilled Anoro Ellipta 62.5-25 mcg/actuation (umeclidinium-vilanterol) 1 inh inhalation DAILY 60 ea 2RF 60 days NS bupropion HCl XL (Wellbutrin XL) 150 mg PO QAM 90 tabs 1RF buspirone 10 mg PO .q am 90 tabs 1RF Anxiety 90 days hydrochlorothiazide 25 mg PO DAILY 90 tabs 1RF Blood pressure 90 days lisinopril 40 mg PO DAILY 90 tabs 1RF Blood pressure 90 days Coding Level of Care Code Est Pt Level 4 (28286) Diagnoses Hypertension, essential I10 Pulmonary emphysema, unspecified emphysema type J43.9 COPD type: emphysema Emphysema type: unspecified Moderate persistent asthma without complication J45.40 Asthma complication type: uncomplicated Asthma persistence: persistent PTSD (post-traumatic stress disorder) F43.10 Major depress dis, severe F32.2 Impaired fasting blood sugar R73.01 Additional Codes PREET-7 Assessment Billing - PREET-7 Assessment Tool: PREET-7 Assessment 95902 ([id number])
[2023-06-30 10:57] VITALS: BP 138/82; PULSE 99; O2SAT 96; BMI 39.5
== END 2023-06-30 11:18 | disposition home or self-care (01) ==
PROVIDERS: PCP Internal Medicine; Visit Provider Internal Medicine
DX: J43.9 Emphysema, unspecified (principal); F32.2 Major depressive disorder, single episode, severe without psychotic features; E66.01 Morbid (severe) obesity due to excess calories; Z68.39 Body mass index [BMI] 39.0-39.9, adult; I10 Essential (primary) hypertension; J45.40 Moderate persistent asthma, uncomplicated; F43.10 Post-traumatic stress disorder, unspecified; R73.01 Impaired fasting glucose
CPT/HCPCS: 99214

== ENCOUNTER 2023-06-30 11:12 | Outpatient (REF) | payer MEDICARE, MEDICAID, SELFPAY ==
[2023-06-30 13:24] LABS: MANUAL DIFF FLAG NO
[2023-06-30 13:39] LABS: Basophils Absolute Auto 0.1 X10*3/uL (0.0-0.2); Basophils Percent Auto 0.8 % (0-2); Eosinophils Percent Auto 0.5 % (0-4); Hematocrit 48.7 % (37.0-47.0); Hemoglobin 16.5 g/dl (12.0-16.0); Imm Gran Abs Auto 0.02 X10*3/uL (0.00-0.03); Imm Gran Pct Auto 0.2 % (0.0-0.4); Lymphocytes Percent Auto 36.1 % (20-40); Mean Corpuscular HGB Conc 33.9 g/dl (31.0-35.0); Mean Corpuscular Hemoglobin 28.7 pg (27.0-33.0); Mean Corpuscular Volume 84.7 fL (80.0-98.0); Mean Platelet Volume 11.6 fL (9.4-12.3); Monocytes Absolute Auto 0.5 X10*3/uL (0.1-1.2); Monocytes Percent Auto 6.4 % (2-11); Neutrophils Absolute Auto 4.7 x10*3/uL (2.0-8.3); Platelet Count 266 X10*3/uL (160-400); Red Blood Count 5.75 X10*6/uL (4.20-5.50); Red Cell Distribution Width 13.7 % (11.0-16.0); White Blood Count 8.4 X10*3/uL (4.8-10.8)
[2023-06-30 13:53] LABS: Estimated Average Glucose 100 mg/dL; Hemoglobin A1c % 5.1 % (<6.0)
[2023-06-30 14:21] LABS: Alanine Aminotransferase 21 U/L (0-31); Albumin Level 4.7 g/dL (3.5-5.0); Alkaline Phosphatase 70 U/L (39-117); Anion Gap 13 (12-20); Aspartate Amino Transferase 23 U/L (5-31); Bilirubin Total 0.6 mg/dL (0.0-1.0); Blood Urea Nitrogen 21 mg/dL (9-16); Calcium 10.8 mg/dL (8.4-10.2); Carbon Dioxide 29 mmol/L (22-29); Chloride 104 mmol/L (96-108); Estimated Glomerular Filt Rate 52; Glucose Random 101 mg/dL (60-115); Potassium 3.4 mmol/L (3.3-5.1); Sodium 143 mmol/L (135-145)
[2023-06-30 14:24] LABS: TSH reflex Free T4 1.34 uIU/mL (0.32-4.0)
[2023-07-01 15:54] LABS: LDL Cholesterol Direct 157 mg/dL (<100)
== END 2023-06-30 11:13 | disposition home or self-care (01) ==
LOC: HO.HMGCLDS 11:12
PROVIDERS: PCP Internal Medicine; Visit Provider Internal Medicine
DX: J43.9 Emphysema, unspecified (principal); J45.40 Moderate persistent asthma, uncomplicated; F43.10 Post-traumatic stress disorder, unspecified; F32.2 Major depressive disorder, single episode, severe without psychotic features; I10 Essential (primary) hypertension; R73.01 Impaired fasting glucose
CPT/HCPCS: 36415; 80053; 83036; 83721; 84443; 85025

== ENCOUNTER 2024-09-11 11:08 | Outpatient (AMB) | payer MEDICARE, MEDICAID, SELFPAY ==
[2024-09-11 11:11] VITALS: BP 148/88; PULSE 78; O2SAT 98; BMI 41.4
--- NOTE | 2024-09-11 11:11 | A.OFFPC_ITS ---
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: No Allergies No Known Allergies Allergy (Verified 09/11/24 11:18) Medication List - Last Reconciled 09/11/24 by Gilmar Yeager MD Anoro Ellipta 62.5-25 mcg/actuation (umeclidinium-vilanterol) 1 inh inhalation DAILY 60 days NS bupropion HCl XL (Wellbutrin XL) 150 mg PO QAM buspirone 10 mg PO TID hydrochlorothiazide 25 mg PO DAILY 90 days lisinopril 40 mg PO DAILY 90 days quetiapine 150 mg (3 x 50 mg) PO BEDTIME 90 days Tobacco use date assessed: 09/11/24 Dental Screening Dental Screen Date: 06/30/23 HPI Annual PE HPI Details Physical exam appointment - The patient is a 59-year-old female wi th a history of severe depression, morbid obesity, hypertension, difficulty with transportation, anxiety, COPD overlap asthma. Last time seen was more than a year ago, presenting with worsening respiratory issues and toenail abnormalities. - She reports a bad time breathing, wors ened by losing her inhaler. This is associated with her known COPD and ongoing smoking. - She notes coughing up mucus frequently , which is attributed to her smoking habit and COPD. - She reports abnormalities in both big toes, described as possible fungal infections, causing pain and nail disfigurement. - She has experienced recent weight gain , attributed to psychiatric medications. - She has been trying to switch her [facility] doctor closer to her residence but faced delays. - The patient has a history of anxiety a nd depression, for which she takes psychiatric medications. Medical History: - Chronic Obstructive Pulmonary Disease (COPD) - Essential Hypertension - Anxiety - Depression Social History: - The patient resides in [place] and experiences transportation issues, affecting her ability to attend appointments. - She reports difficulty breathing when bending over. - She acknowledges ongoing smoking habit s, which impact her COPD and respiratory health. Health Maintenance - The patient requires a mammogram, whic h she will attend if ordered. - The patient is advised to have a colon oscopy, to be performed in the hospital setting. - A referral for [facility] for routine [facility] k-ups was discussed and agreed upon. Medications - Seroquel 150 mg nightly - Bupropion (Wellbutrin) 150 mg - Buspirone 10 mg, three times daily - Unspecified blood pressure medications Patient Instructions - Arrange transportation well ahead of m edical appointments to ensure timely arrival. - Follow up on scheduling mammogram, col onoscopy, and [facility] appointments as discussed. - Avoid smoking to manage COPD symptoms and consider smoking cessation resources. 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 However patient would like to hold that at this point since she will be making other appointments - Take medications as prescribed and rep ort any side effects to the healthcare provider. - Continue nonfasting blood tests to be done today Review of Systems - General: No fever no chills - Neurological: No headaches no dizzin ess - Ear nose throat: No sore throat no hearing difficulty no ear pain - Cardiovascular: No syncope, no chest pain, no palpitations - Gastrointestinal: No nausea vomiting or diarrhea - Endocrine: No polyuria polydipsia no heat intolerance - Genitourinary: No dysuria - Skin: No new complaints Physical Exam General: Cooperative, healthy appearing, comfortable, no acute distress Orientation: Patient oriented x3 Head: Normal to inspection Ears: Within normal limit visually Nose: Normal external nose present Face and sinus: Normal facial exam Eyes: Appearance normal, extraocular movement intact pupils reactive Neck: Normal visual inspection and supple Respiratory: Normal respiratory effort, clear to auscultation Cardiovascular: S1 and S2 RRR Breast exam benign GI: Normal to inspection. Soft to palpation and nontender Skin: Turgor normal, no acute findings. Has been picking on a scab right breast Neuro: Patient oriented x3, motor sensory intact, balance intact, tandem pass Extremities: Normal to inspection, range of motion intact, bilateral big toenail deformed and thick PFSH Medical History BMI 38.0-38.9,adult Family History Mother Ovarian cancer Social History Housing: Other Alcohol intake: never Patient Tobacco Use Status: Current everyday Tobacco user Cigarettes Per Day: 5 e-Cigarette/Vaping Use: Never Used service: No Current occupational status: unemployed Sexual orientation: Straight/Heterosexual Gender identity: Female Cognitive needs: No Hearing needs: No Vision needs: No Questionnaire PHQ-9 Over the last 2 weeks, how often have you been bothered by any of the following problems? 1. Little interest or pleasure in doing things: several days 2. Feeling down, depressed, or hopeless: several days 3. Trouble falling or staying asleep, or sleeping too much: several days 4. Feeling tired or having little energy: several days 5. Poor appetite or overeating: more than half the days 6. Feeling bad about yourself - or that you are a failure or have let yourself or your family down: several days 7. Trouble concentrating on things, such as reading the newspaper or watching television: several days 8. Moving or speaking so slowly that other people could have noticed. Or the opposite - being so fidgety or restless that you have been moving around a lot more than usual: more than half the days 9. Thoughts that you would be better off or of hurting yourself in some way: several days Total score: 11 Depression Screening Interpretation: Positive Depression Screening Follow-up: Existing condition and In treatment Depression Screening Done: Yes 95338 - PHQ-9 Billing: Yes Source: Developed by Drs. Jeo Fernandes, Malathi Lindsey, [employer]cy [employer] and colleagues, with an educational edmundo from [employer]. Thrive Questionnaire Date Thrive assessed: 09/11/24 I am a: Patient What is your living situation today?: I have a steady place to live Within the past 12 months, did the food you bought not last and you didn't have the money to get more?: Never true Within the past 12 months, did you worry whether your food would run out before you got money to buy more?: Never true Do you have trouble paying for medicines?: No Do you have trouble getting transportation to medical appointments?: Yes Do you have trouble paying your heating and electricity bill?: No Do you have trouble taking care of your child, family member or friend?: No Do you have trouble with day-to-day activities such as bathing, preparing meals, shopping, managing finances, etc.?: No Are you currently unemployed and looking for a job?: No Are you interested in more education?: No THRIVE Score: 1 PREET-7 AMB Questionnaire PREET-7 Date PREET - 7 assessed: 06/30/23 Source: Developed by Drs. Joe Fernandes, Malathi Lindsey, [employer] and colleagues, with an educational edmundo from [employer]. Physical exam (Primary Care) Vital Signs: Last Vital Signs Pulse 78 09/11/24 11:11 BP 148/88 H 09/11/24 11:11 Pulse Ox 98 09/11/24 11:11 Oxygen Delivery Method Room Air 09/11/24 11:11 BMI result Body Mass Index 41.4 BMI Assessment/Plan discussion: Declined counseling Tobacco/Smoking Status: Tobacco use Status Tobacco use date assessed 09/11/24 09/11/24 11:18 Patient Tobacco Use Status Current everyday Tobacco 09/11/24 11:18 e-Cigarette/Vaping Use Never Used 09/11/24 11:18 Are you ready to quit: No Tobacco cessation counseling provided: Yes Relapse Prevention: discussed the importance of a supportive environment CPT code: 10647 - 4-10 Minutes PHQ-9: PHQ-9 Score PHQ-9: Total score 11 09/11/24 11:41 Depression Screening Interpretation: Positive Depression Screening Follow-up: Existing condition and In treatment Thrive Assessment: Date of Thrive Assessment Date Thrive assessed 09/11/24 09/11/24 11:18 Coding Level of Care Code Est Pt Level 4 (01411) Est Pt Prev Care 40-64y(12754) Diagnoses Encounter for general adult medical examination with abnormal findings Z00.01 Moderate persistent asthma without complication J45.40 Asthma complication type: uncomplicated Asthma persistence: persistent Impaired fasting blood sugar R73.01 Hypertension, essential I10 PTSD (post-traumatic stress disorder) F43.10 Major depress dis, severe F32.2 Colon cancer screening Z12.11 Pulmonary emphysema, unspecified emphysema type J43.9 COPD type: emphysema Emphysema type: unspecified Morbid obesity due to excess calories E66.01 Additional Codes PHQ-9 - 22686 - PHQ-9 Billing: Yes ([id number]) Vital Signs *Quality* - CPT code: 50845 - 4-10 Minutes ([id number]) Assessment & Plan Assessment & Plan (1) Encounter for general adult medical examination with abnormal findings: Code(s): Z00.01 - Encounter for general adult medical examination with abnormal findings Category: Medical (2) Asthma, moderate: Code(s): J45.909 - Unspecified asthma, uncomplicated Category: Medical Qualifiers: Asthma complication type: uncomplicated Asthma persistence: persistent Qualified Code(s): J45.40 - Moderate persistent asthma, uncomplicated (3) Impaired fasting blood sugar: Code(s): R73.01 - Impaired fasting glucose Category: Medical (4) Hypertension, essential: Code(s): I10 - Essential (primary) hypertension Category: Medical (5) PTSD (post-traumatic stress disorder): Code(s): F43.10 - Post-traumatic stress disorder, unspecified Category: Medical (6) Major depress dis, severe: Code(s): F32.2 - Major depressive disorder, single episode, severe without psychotic features Category: Medical (7) Colon cancer screening: Code(s): Z12.11 - Encounter for screening for malignant neoplasm of colon Category: Medical (8) COPD (chronic obstructive pulmonary disease): Code(s): J44.9 - Chronic obstructive pulmonary disease, unspecified Category: Medical Qualifiers: COPD type: emphysema Emphysema type: unspecified Qualified Code(s): J43.9 - Emphysema, unspecified (9) Morbid obesity due to excess calories: Code(s): E66.01 - Morbid (severe) obesity due to excess calories Category: Medical Plan Physical exam appointment - The patient is a 59-year-old female with a history of severe depression, morbid obesity, hypertension, difficulty with transportation, anxiety, PTSD, COPD overlap asthma. Last time seen was more than a year ago, presenting with worsening respiratory issues and toenail abnormalities. - She reports a bad time breathing, worsened by losing her inhaler. This is ass ociated with her known COPD and ongoing smoking. - She notes coughing up mucus frequently, which is attributed to her smoking habit and COPD. - She reports abnormalities in both big toes, described as possible fungal infections, causing pain and nail disfigurement. - She has experienced recent weight gain, attributed to psychiatric medications. - She has been trying to switch her primary doctor closer to her residence but faced delays. - The patient has a history of anxiety and depression, for which she takes psychiatric medications. Medical History: - Chronic Obstructive Pulmonary Disease (COPD) - Essential Hypertension - Anxiety - Depression Social History: - The patient resides in [place] and experiences transportation issues, affecting her ability to attend appointments. - She reports difficulty breathing when bending over. - She acknowledges ongoing smoking habits, which impact her COPD and respiratory health. Health Maintenance - The patient requires a mammogram, which she will attend if ordered. - The patient is advised to have a colonoscopy, to be performed in the hospital setting. - A referral for [facility] for routine check-ups was discussed and agreed upon. Medications - Seroquel 150 mg nightly - Bupropion (Wellbutrin) 150 mg - Buspirone 10 mg, three times daily - Unspecified blood pressure medications Patient Instructions - Arrange transportation well ahead of medical appointments to ensure timely arrival. - Follow up on scheduling mammogram, colonoscopy, and [facility] appointments as discussed. - Avoid smoking to manage COPD symptoms and consider smoking cessation resources. 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 However patient would like to hold that at this point since she will be making other appointments - Take medications as prescribed and report any side effects to the healthcare provider. - Continue nonfasting blood tests to be done today Orders: Orders Complete Blood Count Auto Diff Today F32.2 - Major depressive disorder, single episode, severe without psychotic features, F43.10 - Post-traumatic stress disorder, unspecified, I10 - Essential (primary) hypertension, J45.40 - Moderate persistent asthma, uncomplicated, R73.01 - Impaired fasting glucose, Z00.01 - Encounter for general adult medical examination with abnormal findings TSH reflex Free T4 Today F32.2 - Major depressive disorder, single episode, severe without psychotic features, F43.10 - Post-traumatic stress disorder, unspecified, I10 - Essential (primary) hypertension, J45.40 - Moderate persistent asthma, uncomplicated, R73.01 - Impaired fasting glucose, Z00.01 - Encounter for general adult medical examination with abnormal findings MM tomosynthesis screening BI Today Z12.31 - Encounter for screening mammogram for malignant neoplasm of breast Comprehensive Met. Panel Today E66.01 - Morbid (severe) obesity due to excess calories, F32.2 - Major depressive disorder, single episode, severe without psychotic features, F43.10 - Post-traumatic stress disorder, unspecified, I10 - Essential (primary) hypertension, J43.9 - Emphysema, unspecified, J45.40 - Moderate persistent asthma, uncomplicated, R73.01 - Impaired fasting glucose, Z00.01 - Encounter for general adult medical examination with abnormal findings LDL Cholesterol Direct Today E66.01 - Morbid (severe) obesity due to excess calories, F32.2 - Major depressive disorder, single episode, severe without psychotic features, F43.10 - Post-traumatic stress disorder, unspecified, I10 - Essential (primary) hypertension, J43.9 - Emphysema, unspecified, J45.40 - Moderate persistent asthma, uncomplicated, R73.01 - Impaired fasting glucose, Z00.01 - Encounter for general adult medical examination with abnormal findings Referrals Gastroenterology Referral Z12.11 - Encounter for screening for malignant neoplasm of colon [facility] Referral Z01.419 - Encounter for gynecological examination (general) (routine) without abnormal findings Medications: Changed From buspirone 10 mg PO .q am 90 days 90 tabs 1RF Anxiety To buspirone 10 mg PO TID Anxiety Refilled Anoro Ellipta 62.5-25 mcg/actuation (umeclidinium-vilanterol) 1 inh inhalation DAILY 60 days 60 ea 2RF NS hydrochlorothiazide 25 mg PO DAILY 90 tabs 1RF Blood pressure 90 days lisinopril 40 mg PO DAILY 90 tabs 1RF Blood pressure 90 days Anoro Ellipta 62.5-25 mcg/actuation (umeclidinium-vilanterol) 1 inh inhalation DAILY 60 ea 5RF 60 days NS
--- OUTSIDE RECORDS SUMMARY | 2024-09-11 12:23 | XMS_ITS | Clinical Summary ---
Author Organization [facility] Address [address] [place] [address] Care Team Providers Care Cover Inspector Name Role Phone Unavailable Primary Care Provider Unavailabl e Social History Tobacco Use Types Packs/Day Years Used Date Smoking Tobacco: Never Assessed Comments Unknown Sex and Gender Information Value Date Recorded Sex Assigned at Not on file Legal Sex Female 8:12 PM EST Gender Identity Not on file Sexual Orientation Not on file Plan of Treatment Health Maintenance Due Date Last Done Comments Breast Cancer Screening 1967 DTaP,Tdap,and Td Vaccines (1 - Tdap) 1986 Hepatitis B Vaccines (1 of 3 - 19+ 3-dose series) 1986 Cervical Cancer Screening: P ap Smear 1988 Pneumococcal Vaccine: 50+ Ye ars (1 of 1 - PCV) 2017 Zoster Vaccines (1 of 2) 2017 Colorectal Cancer Screening: Colonoscopy 03/30/2023 Depression Screening 03/30/2023 HIV Screening 03/30/2023 Hepatitis C Screening 03/30/2023 Social Influencers of Health Screening 03/30/2023 COVID-19 Vaccine ( - 2023-2 5 season) 2023 Influenza Vaccine (#1) 2024 HIB Vaccines Aged Out No longer eligi ble based on patient's age to complete this topic HPV Vaccines Aged Out No longer eligi ble based on patient's age to complete this topic Hepatitis A Vaccines Aged Out No long er eligible based on patient's age to complete this topic IPV Vaccines Aged Out No longer eligi ble based on patient's age to complete this topic MMR Vaccines Aged Out No longer eligi ble based on patient's age to complete this topic Meningococcal ACWY Vaccine Aged Out N o longer eligible based on patient's age to complete this topic Meningococcal B Vaccine Aged Out No l onger eligible based on patient's age to complete this topic RSV Immunization Patients Un kvng 20 months Aged Out No longer eligible b ased on patient's age to complete this topic Varicella Vaccines Aged Out No longer eligible based on patient's age to complete this topic
--- OUTSIDE RECORDS SUMMARY | 2024-09-11 12:23 | XMS_ITS | Clinical Summary ---
Author Organization [facility] Address [address] [place] [address] Care Team Providers Care Licensed Retail Supervisor Name Role Phone Unavailable Primary Care Provider Unavailabl e Source Comments PLEASE NOTE, if this patient is a minor, it may be UNLAWFUL to discuss sensitive information that is contained in these records (such as FAMILY PLANNING, MENTAL HEALTH or SUBSTANCE ABUSE) with the minor patient's parent or other person without the patient's specific authorization.[facility] Medications lisinopriL 40 mg tabletIndication s:Hypertension, unspecified type Take 1 Tablet by mouth once daily 90 Tablet 3 12/25/2023 Active hydroCHLOROthiaz salinas (HYDRODIURIL) 25 mg tabletIndication s:Hypertension, unspecified type Take 1 Tablet by mouth once daily 90 Tablet 3 12/25/2023 Active ANORO ELLIPTA 62.5-25 mcg/actuation dsdvIndications: Mild asthma, unspecified whether complicated, unspecified whether persistent ([facility]) Inhale 1 Puff into the lungs once daily 60 Each 2 12/25/2023 Active buPROPion XL (WELLBUTRIN XL) 150 mg 24 hr tabletIndication s:Depression, major, recurrent, mild ([facility] V24) Take 1 Tablet by mouth every morning for 180 days 90 Tablet 1 02/12/2024 Active QUEtiapine XR (SEROQUEL XR) 150 mg Tb24 24 hr tabletIndication s:PTSD (post-traumatic stress disorder),Genera lized anxiety disorder Take 1 Tablet by mouth nightly at bedtime for 180 days 30 Tablet 5 05/02/2024 10/30/19 25 Active busPIRone (BUSPAR) 15 mg tabletIndication s:Generalized anxiety disorder Take 1 Tablet by mouth 3 (three) times daily for 180 days 270 Tablet 1 05/02/2024 10/30/19 25 Active Active Problems Problem Noted Date Diagnosed Date Depression, major, recurrent, mild ([facility] V24) 02/12/2024 Generalized anxiety disorder 02/12/2024 PTSD (post-traumatic stress disorder) 02/12/2024 Anxiety and depression 12/25/2023 Hypertension 12/25/2023 Mild asthma ([facility]) 12/25/2023 Encounters Date Type Department Care Team Description 07/16/2024 / TELEPHONE [address] [phone] Samantha Heard, Community Health Worker from Last 3 Months Family History Medical History Relation Name Comments alcohol use disorder Mother Relation Name Status Comments Mother Social History Tobacco Use Types Packs/Day Years Used Date Smoking Tobacco: Every Day Cigarettes Passive Smoke Exposure: Past Tobacco Cessation:Ready to Q uit: No Alcohol Use Standard Drinks/Week Comments Never 0 (1 standard drink = 0.6 oz pur e alcohol) Social Connections Answer Date Recorded Connectedness 0 12/25/2023 Financial Resource Strain Answer Date R ecorded Financial Resource Strain 0 2023 Stress Answer Date Recorded Stress 0 12/25/2023 Physical Activity Answer Date Recorded Physical Activity 0 12/25/2023 Food Insecurity Answer Date Recorded Food 0 12/25/2023 Transportation Needs Answer Date Record ed Transportation 0 12/25/2023 Housing Stability Answer Date Recorded Housing 0 12/25/2023 Safety and Environment Answer Date Tyrell rded Safety 0 12/25/2023 Utilities Answer Date Recorded Utilities 0 12/25/2023 Employment Answer Date Recorded Stress 0 12/25/2023 Comments No Sex and Gender Information Value Date Recorded Sex Assigned at Female 10/05/2023 11:24 AM PDT Legal Sex Female 11:23 AM PDT Gender Identity Female 10/05/2023 11:24 AM PDT Sexual Orientation Straight 10/05/2023 11 :24 AM PDT Last Filed Vital Signs Vital Sign Reading Time Taken Comments Blood Pressure 137/89 12/25/2023 1:08 PM EDT Pulse 72 12/25/2023 1:08 PM EDT Temperature 37.2 C (98.9 F) 12/25/2023 1:08 PM EDT Respiratory Rate 18 12/25/2023 1:08 PM EDT Oxygen Saturation - - Inhaled Oxygen Concentration - - Weight 105.7 kg (233 lb) 12/25/2023 1:08 PM EDT Height 157.5 cm (5' 2 ) 12/25/2023 1:08 PM EDT Body Mass Index 42.62 12/25/2023 1:08 PM EDT Plan of Treatment Health Maintenance Due Date Last Done Comments HPV Screening 1967 Hepatitis C Screening 1967 Pap + HPV 1967 Tobacco Cessation Counseling (#1) 1967 Medicare Annual Wellness Visit 1985 Imm-DTaP/Tdap/Td (1 - Tdap) 1986 Imm-Hepatitis B (1 of 3 - 19+ 3-dose series) 6 Imm-Pneumococcal 50+ (1 of 2 - PCV) 1986 Cervical Cancer Screening 1988 Pap Smear 1988 Breast Cancer Screening (Mammogram) 2007 CT Colonography 2012 Colonoscopy 2012 Colorectal Cancer Screening 2012 FIT/gFOBT 2012 Fecal DNA 2012 Flexible Sigmoidoscopy 2012 Imm-Zoster, Recombinant (1 of 2) 2017 [id number] ( - season) 2023 Alcohol and Drug Screen 03/06/2024 12/25/2023 Depression Monitoring 03/26/2024 12/25/2023 Imm-Influenza (Season Ended) 2024 Diabetes Screening 12/24/2024 12/25/2023 Lipid Screening 12/24/2024 12/25/2023 Anxiety Screening 01/11/2025 01/12/2024 HIV Screening Completed 12/25/2023 Cervical Ablation/Cold-Knife Conization Discontinued Cervical Cryotherapy Discontinued Colposcopy Discontinued Endometrial Biopsy Discontinued Excision/Leep Discontinued HPV Genotyping Discontinued Vaginal Pap Discontinued Vulvoscopy Discontinued Procedures Procedure Name Priority Date/Time Associated Diagnosis Comments HIV 1/2 AG & AB W/RFLX (4TH GEN) Routine 12/25/2023 1:59 PM EDT Hypertension, unspecified type COMPREHENSIVE METABOLIC PANEL Routine 12/25/2023 1:59 PM EDT Hypertension, unspecified type LIPID PANEL Routine 12/25/2023 1:59 PM EDT Hypertension, unspecified type from Last 3 Months or Most Recently Relevant to Health Maintenance Results * HIV 1/2 AG & AB W/RFLX (4TH GEN) (12/25/2023 1:59 PM EDT) Pathologist [facility] HIV AG/AB, 4TH GEN NON-REAC TIVE NON-REAC TIVE [facility] Comment: HIV-1 antigen and HIV-1/HIV-2 antibodies were not detected. There is no laboratory evidence of HIV infection. PLEASE NOTE: This information has been disclosed to you from records whose confidentiality may be protected by state law. If your state requires such protection, then the state law prohibits you from making any further disclosure of the information without the specific written consent of the person to whom it pertains, or as otherwise permitted by law. A general authorization for the release of medical or other information is NOT sufficient for this purpose. For additional information please refer to http://education.[employer]/faq/VPW114 (This link is being provided for informational/ educational purposes only.) The performance of this assay has not been clinically validated in patients less than 2 years old. Blood Blood / Unknown 12/25/2023 1 :59 PM EDT 12/25/2023 1:59 PM EDT Narrative [facility] - 12/26/2023 9:37 AM EDT FASTING:NO Yan Rodgers PA-C LAB - BLOOD DRAW Final Result [facility] [address] [place] [id number], [facility] [address] [address] * (ABNORMAL) LIPID PANEL (12/25/2023 1:59 PM EDT) Pathologist [facility] CHOLESTEROL, TOTAL 208(H) <200 mg/dL [facility] HDL CHOLESTEROL 48(L) > OR = 50 mg/dL [facility] TRIGLYCERIDES 195(H) <150 mg/dL [facility] LDL-CHOLESTEROL 126(H) 99 mg/dL (calc) [facility] Comment: Reference range: <100 Desirable range <100 mg/dL for primary prevention; <70 mg/dL for patients with CHD or diabetic patients with > or = 2 CHD risk factors. LDL-C is now calculated using the Kerwin calculation, which is a validated novel method providing better accuracy than the Friedewald equation in the estimation of LDL-C. Pierce SKINNER et al. JUANPABLO. 2013;310(19): 9496-2114 (http://education.[employer]/faq/MXM906) CHOL/HDLC RATIO 4.3 <5.0 (calc) [facility] NON-HDL CHOLESTEROL 160(H) <130 mg/dL (calc) [facility] Comment: For patients with diabetes plus 1 major ASCVD risk factor, treating to a non-HDL-C goal of <100 mg/dL (LDL-C of <70 mg/dL) is considered a therapeutic option. Blood Blood / Unknown 12/25/2023 1 :59 PM EDT 12/25/2023 1:59 PM EDT Narrative [facility] - 12/26/2023 9:37 AM EDT FASTING:NO Yan Rodgers PA-C LAB - BLOOD DRAW Final Result [facility] [address] [address], [facility] [address] [address] * (ABNORMAL) COMPREHENSIVE METABOLIC PANEL (12/25/2023 1:59 PM EDT) Pathologist [facility] GLUCOSE 101 65 - 139 mg/dL [facility] Comment: Non-fasting reference interval UREA NITROGEN (BUN) 15 7 - 25 mg/dL [facility] CREATININE (blood) 1.13(H) 0.50 - 1.03 mg/dL [facility] EGFR 57(L) > OR = 60 mL/min/1. 73m2 [facility] BUN/CREATININE RATIO 13 6 - 22 (calc) [facility] SODIUM 140 135 - 146 mmol/L [facility] POTASSIUM 3.8 3.5 - 5.3 mmol/L [facility] CHLORIDE 102 98 - 110 mmol/L [facility] CARBON DIOXIDE 31 20 - 32 mmol/L [facility] CALCIUM 11.1(H) 8.6 - 10.4 mg/dL [facility] PROTEIN, TOTAL 7.0 6.1 - 8.1 g/dL [facility] ALBUMIN 4.5 3.6 - 5.1 g/dL [facility] GLOBULIN 2.5 1.9 - 3.7 g/dL (calc) [facility] ALBUMIN/GLOBULI N RATIO 1.8 1.0 - 2.5 (calc) [facility] BILIRUBIN, TOTAL 0.3 0.2 - 1.2 mg/dL [facility] ALKALINE PHOSPHATASE 74 37 - 153 U/L [facility] AST 19 10 - 35 U/L [facility] ALT 19 6 - 29 U/L [facility] Blood Blood / Unknown 12/25/2023 1 :59 PM EDT 12/25/2023 1:59 PM EDT Narrative [facility] - 12/26/2023 9:37 AM EDT FASTING:NO us Yan Rodgers PA-C LAB - BLOOD DRAW Edited Resul t - Final [facility] [address] [address], [facility] [address] [address] from Last 3 Months or Most Recently Relevant to Health Maintenance Insurance [place] [id number] [employer] MEDICARE COMPLETE CHO
== END 2024-09-11 11:33 | disposition home or self-care (01) ==
LOC: HO.HMCC 11:09
PROVIDERS: PCP Internal Medicine; Visit Provider Internal Medicine
DX: Z00.01 Encounter for general adult medical examination with abnormal findings (principal); J43.9 Emphysema, unspecified; F32.2 Major depressive disorder, single episode, severe without psychotic features; E66.01 Morbid (severe) obesity due to excess calories; Z68.41 Body mass index [BMI] 40.0-44.9, adult; J45.40 Moderate persistent asthma, uncomplicated; R73.01 Impaired fasting glucose; I10 Essential (primary) hypertension; F43.10 Post-traumatic stress disorder, unspecified; Z12.11 Encounter for screening for malignant neoplasm of colon

== ENCOUNTER 2024-09-11 11:34 | Outpatient (REF) | payer MEDICARE, MEDICAID, SELFPAY ==
[2024-09-11 15:59] LABS: MANUAL DIFF FLAG NO
[2024-09-11 16:21] LABS: Hematocrit 43.9 % (37.0-47.0); Hemoglobin 14.3 g/dl (12.0-16.0); Imm Gran Abs Auto 0.02 X10*3/uL (0.00-0.03); Imm Gran Pct Auto 0.3 % (0.0-0.4); Lymphocytes Absolute Auto 2.8 X10*3/uL (1.2-4.9); Mean Corpuscular HGB Conc 32.6 g/dl (31.0-35.0); Mean Corpuscular Hemoglobin 27.3 pg (27.0-33.0); Mean Corpuscular Volume 83.9 fL (80.0-98.0); NRBC Abs Auto 0.000 X10*3/uL (0.0-0.012); NRBC Pct Auto 0.0 /100WBC (0.0-0.2); Platelet Count 221 X10*3/uL (160-400); Red Blood Count 5.23 X10*6/uL (4.20-5.50); White Blood Count 6.1 X10*3/uL (4.8-10.8)
[2024-09-11 16:47] LABS: Alanine Aminotransferase 29 U/L (0-31); Albumin Level 4.3 g/dL (3.5-5.0); Alkaline Phosphatase 60 U/L (39-117); Anion Gap 10 (12-20); Aspartate Amino Transferase 31 U/L (5-31); Blood Urea Nitrogen 18 mg/dL (9-16); Calcium 10.0 mg/dL (8.4-10.2); Carbon Dioxide 28 mmol/L (22-29); Chloride 108 mmol/L (96-108); Estimated Glomerular Filt Rate 44; Potassium 3.4 mmol/L (3.3-5.1); Sodium 143 mmol/L (135-145); Total Protein 6.8 g/dL (6.5-8.0)
== END 2024-09-11 11:35 | disposition home or self-care (01) ==
LOC: HO.HMGCLDS 11:34
PROVIDERS: PCP Internal Medicine; Visit Provider Internal Medicine
DX: Z00.01 Encounter for general adult medical examination with abnormal findings (principal); J45.40 Moderate persistent asthma, uncomplicated; R73.01 Impaired fasting glucose; I10 Essential (primary) hypertension; F43.10 Post-traumatic stress disorder, unspecified; F32.2 Major depressive disorder, single episode, severe without psychotic features; J43.9 Emphysema, unspecified; E66.01 Morbid (severe) obesity due to excess calories; Z68.41 Body mass index [BMI] 40.0-44.9, adult; Z79.899 Other long term (current) drug therapy; Z13.31 Encounter for screening for depression
CPT/HCPCS: 36415; 80053; 83721; 84443; 85025; 96127; 99212; 99396

== ENCOUNTER 2024-10-29 09:37 | Outpatient (REF) | payer MEDICARE, MEDICAID, SELFPAY ==
--- NOTE | ~2024-10-29 | MM_ITS ---
EXAMINATION: MM SCREENING DIGITAL BREAST TOMOSYNTHESIS, BILATERAL CLINICAL INFORMATION: Screening. Asymptomatic. COMPARISON: December 23, 2021 TECHNIQUE: Digital breast tomosynthesis is performed in both the craniocaudal and mediolateral oblique views along with computer-aided detection (CAD). FINDINGS: BREAST COMPOSITION: There are scattered areas of fibroglandular density (ACR BI-RADS breast composition Category b). BILATERAL BREASTS: No significant masses, suspicious calcifications or other abnormalities are seen in either breast. MM/MM tomosynthesis screening BI IMPRESSION: BILATERAL BREASTS: Negative, no mammographic evidence of malignancy. Normal interval follow-up is recommended in 12 months. ASSESSMENT: BI-RADS 1 - Negative RECOMMENDATION: Routine annual mammography screening. FOLLOW-UP: 1 year F/U This examination should not preclude the clinical evaluation of a suspicious palpable abnormality. This patient's information was entered into a reminder system with a target due date for their next mammogram. Electronically signed by: Jacobo Harris MD 11/01/2024 08:13 PM EDT
--- OUTSIDE RECORDS SUMMARY | 2024-10-29 10:14 | XMS_ITS | Clinical Summary ---
Author Organization [facility] Address [address] [place] [address] Care Team Providers Care Continuing Education Director Name Role Phone Unavailable Primary Care Provider [...] 2) 2017 Colorectal Cancer Screening: Colonoscopy 03/30/2023 HIV Screening 03/30/2023 Hepatitis C Screening 03/30/2023 Social Influencers of Health Screening 03/30/2023 COVID-19 Vaccine (1 - 2023-2 5 season) 2023 Depression Screening 03/06/2024 Influenza Vaccine (#1) 2024 HIB Vaccines Aged [...]
--- OUTSIDE RECORDS SUMMARY | 2024-10-29 10:14 | XMS_ITS | Clinical Summary ---
Author Organization [facility] Address [address] [place] [address] Care Team Providers Care Toll Collector Name Role Phone Unavailable Primary Care Provider [...] asthma, unspecified whether complicated, unspecified whether persistent ([facility]) Inhale 1 Puff into the lungs once daily 60 Each 2 12/25/2023 Active buPROPion XL (WELLBUTRIN XL) 150 mg 24 hr tabletIndication s:Depression, major, recurrent, mild ([facility] V24) Take 1 Tablet by mouth every morning for 180 days 90 Tablet 1 02/12/2024 Active QUEtiapine XR (SEROQUEL XR) 150 mg Tb24 24 hr tabletIndication s:PTSD (post-traumatic stress disorder),Genera lized anxiety disorder Take 1 Tablet by mouth nightly at bedtime for 180 days 30 Tablet 5 05/02/2024 Active busPIRone (BUSPAR) 15 mg tabletIndication s:Generalized anxiety disorder Take 1 Tablet by mouth 3 (three) times daily for 180 days 270 Tablet 1 05/02/2024 Active Active Problems Problem Noted Date Diagnosed Date Depression, major, recurrent, mild ([facility] V24) 02/12/2024 Generalized anxiety disorder 02/12/2024 PTSD (post-traumatic stress disorder) 02/12/2024 Anxiety and depression 12/25/2023 Hypertension 12/25/2023 Mild asthma ([facility]) 12/25/2023 Family History Medical History Relation Name Comments [...] 2012 Imm-Zoster, Recombinant (1 of 2) 2017 [id number] ( season) 2023 Alcohol and Drug Screen 03/06/2024 12/25/2023 Depression Monitoring 03/26/2024 12/25/2023 Imm-Influenza (#1) 2024 Diabetes Screening 12/24/2024 12/25/2023 Lipid Screening [...] (4TH GEN) (12/25/2023 1:59 PM EDT) Pathologist [facility] [place] HIV AG/AB, 4TH GEN NON-REAC TIVE NON-REAC TIVE [facility] Comment: HIV-1 antigen and HIV-1/HIV-2 antibodies were [...] purpose. For additional information please refer to http://education.[employer]/faq/OTG008 (This link is being provided for informational/ educational purposes only.) The performance of this assay has not been clinically validated in patients less than 2 years old. Blood Blood / Unknown 12/25/2023 1 :59 PM EDT 12/25/2023 1:59 PM EDT Narrative [facility] - 12/26/2023 9:37 AM EDT FASTING:NO Yan Rodgers PA-C LAB - BLOOD DRAW Final Result [facility] [address] [place] [id number], [facility] [address] [address] * (ABNORMAL) LIPID PANEL (12/25/2023 1:59 PM EDT) Pathologist [facility] [place] CHOLESTEROL, TOTAL 208(H) <200 mg/dL [facility] HDL CHOLESTEROL 48(L) > OR = 50 mg/dL [facility] TRIGLYCERIDES 195(H) <150 mg/dL [facility] LDL-CHOLESTEROL 126(H) 99 mg/dL (calc) [facility] Comment: Reference range: <100 Desirable range <100 mg/dL for primary prevention; <70 mg/dL for patients with CHD or diabetic patients with > or = 2 CHD risk factors. LDL-C is now calculated using the Kerwin calculation, which is a validated novel method providing better accuracy than the Friedewald equation in the estimation of LDL-C. Pierce SS et al. JUANPABLO. 2013;310(19): 4931-9652 (http://education.[employer]/faq/MUS096) CHOL/HDLC RATIO 4.3 <5.0 (calc) [facility] NON-HDL CHOLESTEROL 160(H) <130 mg/dL (calc) [facility] Comment: For patients with diabetes plus 1 major ASCVD risk factor, treating to a non-HDL-C goal of <100 mg/dL (LDL-C of <70 mg/dL) is considered a therapeutic option. Blood Blood / Unknown 12/25/2023 1 :59 PM EDT 12/25/2023 1:59 PM EDT Narrative [facility] - 12/26/2023 9:37 AM EDT FASTING:NO Yan Rodgers PA-C LAB - BLOOD DRAW Final Result [facility] [address] [address], [facility] [address] [place] [address] * (ABNORMAL) COMPREHENSIVE METABOLIC PANEL (12/25/2023 1:59 PM EDT) Pathologist [facility] [place] GLUCOSE 101 65 - 139 mg/dL [facility] Comment: Non-fasting reference interval UREA NITROGEN (BUN) 15 7 - 25 mg/dL [facility] CREATININE (blood) 1.13(H) 0.50 - 1.03 mg/dL [facility] EGFR 57(L) > OR = 60 mL/min/1. 73m2 [facility] BUN/CREATININE RATIO 13 6 - 22 (calc) [facility] SODIUM 140 135 - 146 mmol/L [facility] POTASSIUM 3.8 3.5 - 5.3 mmol/L [facility] [place] [facility] CHLORIDE 102 98 - 110 mmol/L [facility] CARBON DIOXIDE 31 20 - 32 mmol/L [facility] CALCIUM 11.1(H) 8.6 - 10.4 mg/dL [facility] PROTEIN, TOTAL 7.0 6.1 - 8.1 g/dL [facility] ALBUMIN 4.5 3.6 - 5.1 g/dL [facility] GLOBULIN 2.5 1.9 - 3.7 g/dL (calc) [facility] ALBUMIN/GLOBULI N RATIO 1.8 1.0 - 2.5 (calc) [facility] BILIRUBIN, TOTAL 0.3 0.2 - 1.2 mg/dL [facility] ALKALINE PHOSPHATASE 74 37 - 153 U/L [facility] AST 19 10 - 35 U/L [facility] ALT 19 6 - 29 U/L [facility] Blood Blood / Unknown 12/25/2023 1 :59 PM EDT 12/25/2023 1:59 PM EDT Narrative [facility] - 12/26/2023 9:37 AM EDT FASTING:NO us Yan Rodgers PA-C LAB - BLOOD DRAW Edited Resul t - Final [facility] [address] [address], [facility] [address] [address] from Last 3 Months or Most Recently Relevant to Health Maintenance Insurance [place] MEDICAID [employer] MEDICARE COMPLETE CHO
== END 2024-10-29 09:38 | disposition home or self-care (01) ==
LOC: HO.MAMMO 09:37
PROVIDERS: PCP Internal Medicine; Visit Provider Internal Medicine
DX: Z12.31 Encounter for screening mammogram for malignant neoplasm of breast (principal)
CPT/HCPCS: 77063; 77067

== ENCOUNTER → 2024-10-29 09:45 | Outpatient (BNV) | payer MEDICARE, MEDICAID, SELFPAY | PROVIDERS: PCP Internal Medicine; Visit Provider Radiology Body Imaging | DX: Z12.31 Encounter for screening mammogram for malignant neoplasm of breast (principal) | CPT/HCPCS: 77063; 77067 ==

== ENCOUNTER 2024-12-06 07:48 | Outpatient (AMB) | payer MEDICARE, MEDICAID, SELFPAY ==
[2024-12-06 07:49] VITALS: BP 142/86; PULSE 72; RESP 16; TEMP 36.7; O2SAT 98; BMI 41.2
--- NOTE | 2024-12-06 07:49 | A.OFFPC_ITS ---
Vital Signs 12/06/24 07:49 Height 5 ft 4 in Weight 240 lb BMI 41.2 BP 142/86 H Blood Pressure Location Rt brachial Position Sitting Respiration 16 Pulse 72 Pulse Source Pulse Oximeter Temp 98.0 F Temp Source Oral Pulse Oximetry (%) 98 Oxygen Delivery Method Room Air Intake Visit Reasons: housing forms Allergies No Known Allergies Allergy (Verified 09/11/24 11:18) Medication List - Last Reconciled 12/06/24 by Gilmar Yeager MD Anoro Ellipta 62.5-25 mcg/actuation (umeclidinium-vilanterol) 1 inh inhalation DAILY 60 days NS bupropion HCl XL (Wellbutrin XL) 150 mg PO QAM buspirone 10 mg PO TID hydrochlorothiazide 25 mg PO DAILY 90 days lisinopril 40 mg PO DAILY 90 days quetiapine 150 mg (3 x 50 mg) PO BEDTIME 90 days Tobacco use date assessed: 12/06/24 Dental Screening Dental Screen Date: 12/06/24 Did you have a dental visit in the last 12 months?: No Did you have a dental problem in the last 6 months where you did not have access to dental care?: No Was dental information given to patient?: Patient declined HPI housing forms HPI Details History The patient is a 59 year old female presenting with follow-up for COPD and hypertension management, as well as a review of recent lab results. Chronic Obstructive Pulmonary Disease (COPD): - The patient uses an inhaler for manage ment. - COPD management entails continual foll ow-up. Hypertension: - Accompanied by uncontrolled blood pres sure despite current medication regimen. - Currently prescribed hydrochlorothiazi de and lisinopril. - Observed elevated blood pressure of 14 2/86 today; previously higher to the point requiring medication adjustment. Hypertensive Nephropathy: - Lab results indicate decreased kidney function, with a glomerular filtration rate reduced to 44 (normal being 60). - Condition known to affect the kidneys as a direct result of high blood pressure. - Not symptomatic, but requires routine observation through follow-up appointments and testing. Hyperlipidemia: - Lab results show increased LDL cholest kale level of 140, which surpasses optimal targets. - Historical elevation not specifically noted, requires dietary and possibly pharmacological measures. Medical History: - Chronic Obstructive Pulmonary Disease (COPD) - Hypertension with hypertensive nephrop athy - Hyperlipidemia - Major depressive disorder - Severe post-traumatic stress disorder (PTSD) - Obesity (Body Mass Index: 41.2) Medications: - Inhaler for COPD management - Wellbutrin for depression - Buspirone for anxiety, dosed three daniela es daily - Hydrochlorothiazide for hypertension - Lisinopril for hypertension - Quetiapine 150 mg at night for psychia tric indication. Problem List - Chronic Obstructive Pulmonary Disease (COPD) - Essential Hypertension uncontrolled - Hypertensive Nephropathy - Hyperlipidemia - Major Depressive Disorder - Post-Traumatic Stress Disorder (PTSD) - Obesity Diagnostic results Labs: - Glomerular filtration rate: 44 (normal: 60) - LDL cholesterol: 140 (should be <100) Patient Instructions - Drink plenty of water. - Avoid ibuprofen, Aleve, or naproxen to reduce kidney stress. - Monitor and report any new symptoms. - Contact pharmacy for prescription need s. - Journal blood pressure readings if pos sible. - Attend follow-up appointments quarterl y. - Maintain a cholesterol-conscious diet. Review of Systems General: No fever no chills neurological: No headaches no dizziness ear nose throat: No sore throat no hearing difficulty no ear pain cardiovascular: No syncope, no chest pain, no palpitations gastrointestinal: No nausea vomiting or diarrhea endocrine: No polyuria polydipsia no heat intolerance genitourinary: No dysuria skin: No new complaints Physical Exam general: No acute distress HEENT: No acute findings neck: Supple respiratory system: Able to talk in full sentences, no audible wheeze no stridor cardiovascular: S1-S2 RRR, blood pressure 142/86 gastrointestinal: No pain extremities: No new findings [employer] E[employer]ELER: Alert awake oriented x3 motor sensory intact skin: Normal turgor [facility] Medical History BMI 38.0-38.9,adult Family History Mother Ovarian cancer Social History Housing: Other Alcohol intake: never Patient Tobacco Use Status: Current everyday Tobacco user Cigarettes Per Day: 5 e-Cigarette/Vaping Use: Never Used service: No Current occupational status: unemployed Sexual orientation: Straight/Heterosexual Gender identity: Female Cognitive needs: No Hearing needs: No Vision needs: No Questionnaire PHQ-9 Over the last 2 weeks, how often have you been bothered by any of the following problems? 1. Little interest or pleasure in doing things: several days 2. Feeling down, depressed, or hopeless: several days 3. Trouble falling or staying asleep, or sleeping too much: several days 4. Feeling tired or having little energy: several days 5. Poor appetite or overeating: more than half the days 6. Feeling bad about yourself - or that you are a failure or have let yourself or your family down: several days 7. Trouble concentrating on things, such as reading the newspaper or watching television: several days 8. Moving or speaking so slowly that other people could have noticed. Or the opposite - being so fidgety or restless that you have been moving around a lot more than usual: more than half the days 9. Thoughts that you would be better off or of hurting yourself in some way: several days Total score: 11 Depression Screening Interpretation: Positive Depression Screening Follow-up: Existing condition and In treatment Depression Screening Done: Yes 32831 - PHQ-9 Billing: Yes Source: Developed by Drs. Joe Fernandes, Malathi Lindsey, [employer] and colleagues, with an educational edmundo from [employer]. Thrive Questionnaire Date Thrive assessed: 09/11/24 I am a: Patient What is your living situation today?: I have a steady place to live Within the past 12 months, did the food you bought not last and you didn't have the money to get more?: Never true Within the past 12 months, did you worry whether your food would run out before you got money to buy more?: Never true Do you have trouble paying for medicines?: No Do you have trouble getting transportation to medical appointments?: Yes Do you have trouble paying your heating and electricity bill?: No Do you have trouble taking care of your child, family member or friend?: No Do you have trouble with day-to-day activities such as bathing, preparing meals, shopping, managing finances, etc.?: No Are you currently unemployed and looking for a job?: No Are you interested in more education?: No Please select the resources that you would like help with: None Currently or been in a relationship where the following occur: No concerns reported THRIVE Score: 1 AUDIT C Alcohol Use Questionnaire (AUDIT-C) 1. How often do you have a drink containing alcohol?: Monthly or less 3. How often do you have six or more drinks on one occasion?: Never Total Score: 1 PREET-7 AMB Questionnaire PREET-7 Date PREET - 7 assessed: 12/06/24 Feeling nervous, anxious, or on edge: 2 = More than half the days Not being able to stop or control worryin = Several days Worrying too much about different things: 1 = Several days Trouble relaxin = Several days Being so restless that it is hard to sit still: 1 = Several days Becoming easily annoyed or irritable: 1 = Several days Feeling afraid as if something awful might happen: 1 = Several days Total PREET-7 score (0-4 normal; 5-9 mild; 10-14 moderate; 15-21 severe): 8 Source: Developed by Drs. Joe Fernandes, Malathi Lindsey, [employer] and colleagues, with an educational edmundo from [employer]. PREET-7 Assessment Billing PREET-7 Assessment Tool: PREET-7 Assessment 07635 Physical exam (Primary Care) Vital Signs: Last Vital Signs Temp 98.0 F 12/06/24 07:49 Pulse 72 12/06/24 07:49 Resp 16 12/06/24 07:49 BP 142/86 H 12/06/24 07:49 Pulse Ox 98 12/06/24 07:49 Oxygen Delivery Method Room Air 12/06/24 07:49 BMI result Body Mass Index 41.2 Tobacco/Smoking Status: Tobacco use Status Tobacco use date assessed 12/06/24 12/06/24 07:54 Patient Tobacco Use Status Current everyday Tobacco 12/06/24 07:54 e-Cigarette/Vaping Use Never Used 12/06/24 07:54 PHQ-9: PHQ-9 Score PHQ-9: Total score 11 12/06/24 08:17 Depression Screening Interpretation: Positive Depression Screening Follow-up: Existing condition and In treatment Thrive Assessment: Date of Thrive Assessment Date Thrive assessed 09/11/24 12/06/24 07:54 Currently or been in a relationship where the following occur: No concerns reported Coding Level of Care Code Est Pt Level 4 (29859) Diagnoses Uncontrolled hypertension I10 Moderate persistent asthma without complication J45.40 Asthma persistence: persistent Asthma complication type: uncomplicated Impaired fasting blood sugar R73.01 PTSD (post-traumatic stress disorder) F43.10 Major depress dis, severe F32.2 Pulmonary emphysema, unspecified emphysema type J43.9 COPD type: emphysema Emphysema type: unspecified Morbid obesity due to excess calories E66.01 Additional Codes PREET-7 Assessment Billing - PREET-7 Assessment Tool: PREET-7 Assessment 52797 ([id number]) PHQ-9 - 32466 - PHQ-9 Billing: Yes ([id number]) Assessment & Plan Assessment & Plan (1) Uncontrolled hypertension: Code(s): I10 - Essential (primary) hypertension Category: Medical (2) Asthma, moderate: Code(s): J45.909 - Unspecified asthma, uncomplicated Category: Medical Qualifiers: Asthma persistence: persistent Asthma complication type: uncomplicated Qualified Code(s): J45.40 - Moderate persistent asthma, uncomplicated (3) Impaired fasting blood sugar: Code(s): R73.01 - Impaired fasting glucose Category: Medical (4) PTSD (post-traumatic stress disorder): Code(s): F43.10 - Post-traumatic stress disorder, unspecified Category: Medical (5) Major depress dis, severe: Code(s): F32.2 - Major depressive disorder, single episode, severe without psychotic features Category: Medical (6) COPD (chronic obstructive pulmonary disease): Code(s): J44.9 - Chronic obstructive pulmonary disease, unspecified Category: Medical Qualifiers: COPD type: emphysema Emphysema type: unspecified Qualified Code(s): J43.9 - Emphysema, unspecified (7) Morbid obesity due to excess calories: Code(s): E66.01 - Morbid (severe) obesity due to excess calories Category: Medical Plan History The patient is a 59 year old female presenting with follow-up for COPD and hypertension management, as well as a review of recent lab results. Chronic Obstructive Pulmonary Disease (COPD): - The patient uses an inhaler for management. - COPD management entails continual follow-up. Hypertension: - Accompanied by uncontrolled blood pressure despite current medication regimen. - Currently prescribed hydrochlorothiazide and lisinopril. - Observed elevated blood pressure of 142/86 today; previously higher to the point requiring medication adjustment. Hypertensive Nephropathy: - Lab results indicate decreased kidney function, with a glomerular filtration rate reduced to 44 (normal being 60). - Condition known to affect the kidneys as a direct result of high blood pressure. - Not symptomatic, but requires routine observation through follow-up appointments and testing. Hyperlipidemia: - Lab results show increased LDL cholesterol level of 140, which surpasses optimal targets. - Historical elevation not specifically noted, requires dietary and possibly pharmacological measures. Medical History: - Chronic Obstructive Pulmonary Disease (COPD) - Hypertension with hypertensive nephropathy - Hyperlipidemia - Major depressive disorder - Severe post-traumatic stress disorder (PTSD) - Obesity (Body Mass Index: 41.2) Medications: - Inhaler for COPD management - Wellbutrin for depression - Buspirone for anxiety, dosed three times daily - Hydrochlorothiazide for hypertension - Lisinopril for hypertension - Quetiapine 150 mg at night for psychiatric indication. Problem List - Chronic Obstructive Pulmonary Disease (COPD) - Essential Hypertension uncontrolled - Hypertensive Nephropathy - Hyperlipidemia - Major Depressive Disorder - Post-Traumatic Stress Disorder (PTSD) - Obesity Diagnostic results Labs: - Glomerular filtration rate: 44 (normal: 60) - LDL cholesterol: 140 (should be <100) Patient Instructions - Drink plenty of water. - Avoid ibuprofen, Aleve, or naproxen to reduce kidney stress. - Monitor and report any new symptoms. - Contact pharmacy for prescription needs. - Journal blood pressure readings if possible. - start new medication amlodipine 5 mg continue to monitor blood pressure and bring the log along - Maintain a cholesterol-conscious diet. Follow-up 3 weeks Medications: New amlodipine 5 mg PO DAILY 90 tabs 0RF
--- OUTSIDE RECORDS SUMMARY | 2024-12-06 07:51 | XMS_ITS | Clinical Summary ---
Author Organization [facility] Address [address] [place] [address] Care Team Providers Care Supplemental Nurse Name Role Phone Unavailable Primary Care Provider [...] Last Done Comments Breast Cancer Screening 1967 Colorectal Cancer Screening: Colonoscopy 1967 DTaP,Tdap,and Td Vaccines (1 - Tdap) 1986 Hepatitis B Vaccines (1 of 3 - 19+ 3-dose series) 1986 Cervical Cancer Screening: P ap Smear 1988 Pneumococcal Vaccine: 50+ Ye ars (1 of 1 - PCV) 2017 Zoster Vaccines (1 of 2) 2017 HIV Screening 03/30/2023 Hepatitis C Screening 03/30/2023 Social Influencers of Health Screening 03/30/2023 Depression Screening 03/06/2024 COVID-19 Vaccine (1 - 2023-2 5 season) 2024 Influenza Vaccine (#1) 2024 RSV Immunization Adult Patie nts (1 - 1-dose 75+ series) 2042 HIB Vaccines Aged Out No longer eligi [...]
== END 2024-12-06 08:48 | disposition home or self-care (01) ==
LOC: HO.HMCC 07:48
PROVIDERS: PCP Internal Medicine; Visit Provider Internal Medicine
DX: J43.9 Emphysema, unspecified (principal); F32.2 Major depressive disorder, single episode, severe without psychotic features; E66.01 Morbid (severe) obesity due to excess calories; Z68.41 Body mass index [BMI] 40.0-44.9, adult; I10 Essential (primary) hypertension; J45.40 Moderate persistent asthma, uncomplicated; R73.01 Impaired fasting glucose; F43.10 Post-traumatic stress disorder, unspecified

== ENCOUNTER → 2024-12-06 07:48 | Outpatient (BNVA) | payer MEDICARE, MEDICAID, SELFPAY | PROVIDERS: PCP Internal Medicine; Visit Provider Internal Medicine | DX: I12.9 Hypertensive chronic kidney disease with stage 1 through stage 4 chronic kidney disease, or unspecified chronic kidney disease (principal); J44.9 Chronic obstructive pulmonary disease, unspecified; N18.9 Chronic kidney disease, unspecified; E78.5 Hyperlipidemia, unspecified; J45.40 Moderate persistent asthma, uncomplicated; R73.01 Impaired fasting glucose; F43.10 Post-traumatic stress disorder, unspecified; F32.2 Major depressive disorder, single episode, severe without psychotic features; J43.9 Emphysema, unspecified; E66.01 Morbid (severe) obesity due to excess calories; Z68.41 Body mass index [BMI] 40.0-44.9, adult | CPT/HCPCS: 96127; 99212 ==